=== PATIENT | male | born 1945 | race Caucasian/White ===

== ENCOUNTER → 2018-11-02 | Outpatient (CLI) | payer MEDICARE ==
[~2018-11-02] MED LIST: ASPI81CH PO; ATOR10; ATOR40TA PO; BRIM.15SO BOTHEYES; CHERRY EXTRACT; CHERRY FRUIT EXTRACT PO; CIPR500 PO; ENOX40I SC; FISH1000; FISH1000 PO; GREEN TEA; GREEN TEA EXTR250 MG PO; IBUP400 PO; LISI5; MOVE FREE ULTR1 EAC1 PO; MULT50L; MULVITMIND PO; OMEGA 3 PO; OXYACE5T PO; OXYACE7.5T PO; PROBIOTIC1 EAC1 PO; Pataday2.5 ML; RANI150; RANI150 PO; RXOXYACE PO; Ranitidine HCl300 MG PO; TIMO.5OPG BOTHEYES; TIMO.5OPSO LEFTEYE; TRIM250 PO; Tylenol325 MG PO; VITAMIN B6 PO
== END | disposition home or self-care (01) ==
LOC: LAB SHORT 14:00 → PLD 14:00
DX: D22.5 Melanocytic nevi of trunk (principal)
CPT/HCPCS: 88305

== ENCOUNTER 2019-01-08 08:41 | Emergency (ER) | payer MEDICARE ==
[~2019-01-08] VITALS: Ht 170.2 cm; Wt 79.4 kg
[2019-01-08] MEDS ORDERED: Combigan Eye Dro5 ML OP (08:49)
[2019-01-08] MEDS ORDERED: TIZANIDINE HCL2 MG PO (08:50)
[2019-01-08 09:32] LABS: BASOPHILS ABSOLUTE AUTO 0.04 K/mm3 (0.00-0.23); BASOPHILS PERCENT AUTO 1 % (0-2); EOSINOPHILS ABSOLUTE AUTO 0.09 K/mm3 (0.00-0.68); EOSINOPHILS PERCENT AUTO 2 % (0-6); Hematocrit 39.6 % (37.0-53.0); Hemoglobin 13.3 g/dL (13.5-17.5); IMMATURE GRAN ABSOLUTE AUTO 0.02 K/mm3 (0.00-0.10); IMMATURE GRAN PERCENT AUTO 0 % (0-1); LYMPHOCYTES ABSOLUTE AUTO 1.07 K/mm3 (0.84-5.20); LYMPHOCYTES PERCENT AUTO 23 % (21-46); MONOCYTES ABSOLUTE AUTO 0.76 K/mm3 (0.16-1.47); MONOCYTES PERCENT AUTO 17 % (4-13); Mean Corpuscular HGB 30.4 pg (26.0-34.0); Mean Corpuscular HGB Conc 33.6 g/dL (31.5-36.5); Mean Corpuscular Volume 90 fL (80-100); Mean Platelet Volume 10.5 fL (9.1-12.4); NEUTROPHILS ABSOLUTE AUTO 2.61 K/mm3 (1.96-9.15); NEUTROPHILS PERCENT AUTO 57 % (41-73); Platelet Count 148 K/mm3 (150-400); RDW Coefficient Variation 12.7 % (11.7-14.2); RDW Standard Deviation 41.9 fL (35.1-46.3); Red Blood Cell Count 4.38 M/mm3 (4.30-5.90); White Blood Cell Count 4.59 K/mm3 (4.00-11.30)
[2019-01-08 09:41] LABS: Alanine Aminotransfer (ALT/SGP 30 U/L (12-78); Albumin, Blood 3.2 g/dL (3.4-5.0); Alk Phos 126 U/L (50-136); Anion Gap 6 mmol/L (6-16); Aspartate Aminotrans (AST/SGOT 23 U/L (12-37); Bilirubin, Total 0.5 mg/dL (0.1-1.0); Blood Urea Nitrogen 23 mg/dL (8-24); Bun/Creatinine Ratio 38.3 (12.0-20.0); CO2, Blood 26 mmol/L (21-32); Calcium, Blood 8.7 mg/dL (8.5-10.1); Chloride, Blood 112 mmol/L (98-108); Globulin, Blood 3.1 g/dL (2.2-4.0); Glomerular Filtration Rate >60 (60-); Glucose, Blood 139 mg/dL (70-99); Sodium, Blood 144 mmol/L (136-145); Total Protein, Blood 6.3 g/dL (6.4-8.2)
[2019-01-08] MEDS ORDERED: Motion Sickness25 M1 PO (11:16)
== END 2019-01-08 11:31 | disposition home or self-care (01) ==
LOC: ER 08:41
PROVIDERS: Emergency Medicine
DX: R42 Dizziness and giddiness (principal); E78.00 Pure hypercholesterolemia, unspecified; K21.9 Gastro-esophageal reflux disease without esophagitis; Z79.82 Long term (current) use of aspirin; Z79.899 Other long term (current) drug therapy
CPT/HCPCS: 80053; 84484; 85025; 93005; 93010; 96360; 99284-25; J7030

== ENCOUNTER 2019-02-26 08:35 | Emergency (ER) | payer MEDICARE ==
[~2019-02-26] VITALS: Ht 170.2 cm; Wt 79.8 kg
[~2019-02-26 08:35] MED LIST changes: +Combigan Eye Dro5 ML OP; +Motion Sickness25 M1 PO; +TIZANIDINE HCL2 MG PO
== END 2019-02-26 10:46 | disposition home or self-care (01) ==
LOC: ER 08:35
DX: S29.011A Strain of muscle and tendon of front wall of thorax, initial encounter (principal); Z88.8 Allergy status to other drugs, medicaments and biological substances; Z79.899 Other long term (current) drug therapy; X58.XXXA Exposure to other specified factors, initial encounter
CPT/HCPCS: 71046; 99283-25

== ENCOUNTER 2019-03-28 16:49 | Emergency (ER) | payer MEDICARE ==
[~2019-03-28] VITALS: Ht 170.2 cm; Wt 79.4 kg
[2019-03-28 17:40] LABS: BASOPHILS ABSOLUTE AUTO 0.05 K/mm3 (0.00-0.23); BASOPHILS PERCENT AUTO 1 % (0-2); EOSINOPHILS ABSOLUTE AUTO 0.12 K/mm3 (0.00-0.68); EOSINOPHILS PERCENT AUTO 2 % (0-6); Hematocrit 41.4 % (37.0-53.0); Hemoglobin 14.6 g/dL (13.5-17.5); IMMATURE GRAN ABSOLUTE AUTO 0.02 K/mm3 (0.00-0.10); IMMATURE GRAN PERCENT AUTO 0 % (0-1); LYMPHOCYTES ABSOLUTE AUTO 2.03 K/mm3 (0.84-5.20); LYMPHOCYTES PERCENT AUTO 29 % (21-46); MONOCYTES ABSOLUTE AUTO 1.16 K/mm3 (0.16-1.47); MONOCYTES PERCENT AUTO 16 % (4-13); Mean Corpuscular HGB 30.7 pg (26.0-34.0); Mean Corpuscular HGB Conc 35.3 g/dL (31.5-36.5); Mean Corpuscular Volume 87 fL (80-100); Mean Platelet Volume 11.3 fL (9.1-12.4); NEUTROPHILS ABSOLUTE AUTO 3.68 K/mm3 (1.96-9.15); NEUTROPHILS PERCENT AUTO 52 % (41-73); Platelet Count 204 K/mm3 (150-400); RDW Coefficient Variation 12.5 % (11.7-14.2); RDW Standard Deviation 40.1 fL (35.1-46.3); Red Blood Cell Count 4.76 M/mm3 (4.30-5.90); White Blood Cell Count 7.06 K/mm3 (4.00-11.30)
[2019-03-28 17:50] LABS: Alanine Aminotransfer (ALT/SGP 30 U/L (12-78); Albumin, Blood 3.5 g/dL (3.4-5.0); Alk Phos 205 U/L (50-136); Anion Gap 9 mmol/L (6-16); Aspartate Aminotrans (AST/SGOT 30 U/L (12-37); Bilirubin, Total 0.5 mg/dL (0.1-1.0); Blood Urea Nitrogen 22 mg/dL (8-24); Bun/Creatinine Ratio 29.9 (12.0-20.0); CO2, Blood 24 mmol/L (21-32); Calcium, Blood 9.2 mg/dL (8.5-10.1); Chloride, Blood 106 mmol/L (98-108); Creatinine, Blood 0.74 mg/dL (0.60-1.20); Globulin, Blood 3.5 g/dL (2.2-4.0); Glomerular Filtration Rate >60 (60-); Glucose, Blood 129 mg/dL (70-99); Potassium, Blood 3.7 mmol/L (3.5-5.5); Sodium, Blood 139 mmol/L (136-145)
[2019-03-28 18:28] LABS: Source, Urine Voided
[2019-03-28 18:36] LABS: Bilirubin, Urine Neg (Neg); Blood, Urine 1+ (Neg); Glucose Qualitative, Urine Neg (Neg); Ketones, Urine 2+ (Neg); Leukocyte Esterase, Urine Neg (Neg); Nitrite, Urine Neg (Neg); Protein, Urine Neg (Neg); Specific Gravity, Urine 1.015 (1.003-1.022); Urobilinogen, Urine NORM (Normal); pH, Urine 6.5 (5.0-8.0)
[2019-03-28 18:51] LABS: Appearance, Urine Clear (Clear); Color, Urine Yellow (P-Yellow)
[2019-03-28 18:53] LABS: Amorphous Light (0-Heavy); Bacteria Few /hpf; Red Blood Cells, Urine 0-2 /hpf (0-2); Squamous Epithelial Cells Not Seen /hpf (Few); White Blood Cells, Urine 0-2 /hpf (0-5)
[2019-03-28] MEDS ORDERED: Percocet 7.5-31 EACH PO (19:34)
== END 2019-03-28 19:50 | disposition home or self-care (01) ==
LOC: ER 16:49
PROVIDERS: Emergency Medicine
DX: R10.11 Right upper quadrant pain (principal); J90 Pleural effusion, not elsewhere classified; Z88.8 Allergy status to other drugs, medicaments and biological substances; Z79.899 Other long term (current) drug therapy; Z79.82 Long term (current) use of aspirin; Z85.118 Personal history of other malignant neoplasm of bronchus and lung
CPT/HCPCS: 71046; 76705; 80053; 81001; 83690; 85025; 93005; 93010; 99285-25

== ENCOUNTER 2019-04-05 14:34 | Emergency (ER) | payer MEDICARE ==
[~2019-04-05] VITALS: Ht 165.1 cm; Wt 78.0 kg
[~2019-04-05 14:34] MED LIST changes: +Percocet 7.5-31 EACH PO
[2019-04-05 15:20] LABS: BASOPHILS ABSOLUTE AUTO 0.05 K/mm3 (0.00-0.23); BASOPHILS PERCENT AUTO 1 % (0-2); EOSINOPHILS ABSOLUTE AUTO 0.11 K/mm3 (0.00-0.68); EOSINOPHILS PERCENT AUTO 2 % (0-6); Hematocrit 41.3 % (37.0-53.0); IMMATURE GRAN ABSOLUTE AUTO 0.02 K/mm3 (0.00-0.10); IMMATURE GRAN PERCENT AUTO 0 % (0-1); LYMPHOCYTES ABSOLUTE AUTO 1.13 K/mm3 (0.84-5.20); LYMPHOCYTES PERCENT AUTO 23 % (21-46); MONOCYTES ABSOLUTE AUTO 0.86 K/mm3 (0.16-1.47); MONOCYTES PERCENT AUTO 17 % (4-13); Mean Corpuscular HGB Conc 33.9 g/dL (31.5-36.5); Mean Corpuscular Volume 89 fL (80-100); NEUTROPHILS ABSOLUTE AUTO 2.84 K/mm3 (1.96-9.15); NEUTROPHILS PERCENT AUTO 57 % (41-73); Platelet Count 206 K/mm3 (150-400); RDW Coefficient Variation 12.6 % (11.7-14.2); RDW Standard Deviation 41.2 fL (35.1-46.3); Red Blood Cell Count 4.66 M/mm3 (4.30-5.90); White Blood Cell Count 5.01 K/mm3 (4.00-11.30)
[2019-04-05 15:31] LABS: Alanine Aminotransfer (ALT/SGP 30 U/L (12-78); Albumin, Blood 3.2 g/dL (3.4-5.0); Albumin/Globulin Ratio 0.9 (0.8-1.8); Alk Phos 206 U/L (50-136); Anion Gap 7 mmol/L (6-16); Aspartate Aminotrans (AST/SGOT 29 U/L (12-37); Bilirubin, Total 0.5 mg/dL (0.1-1.0); Blood Urea Nitrogen 17 mg/dL (8-24); Bun/Creatinine Ratio 30.2 (12.0-20.0); CO2, Blood 27 mmol/L (21-32); Calcium, Blood 8.7 mg/dL (8.5-10.1); Chloride, Blood 109 mmol/L (98-108); Creatinine, Blood 0.56 mg/dL (0.60-1.20); Globulin, Blood 3.6 g/dL (2.2-4.0); Glomerular Filtration Rate >60 (60-); Glucose, Blood 115 mg/dL (70-99); Sodium, Blood 143 mmol/L (136-145); Total Protein, Blood 6.8 g/dL (6.4-8.2)
[2019-04-05] MEDS ORDERED: Percocet 5-3251 EACH PO (17:11)
[2019-04-06] MEDS ORDERED: Zofran8 MG PO (16:38)
[2019-04-06] MEDS ORDERED: Percocet 5-3251 EACH PO (16:38)
== END 2019-04-05 17:20 | disposition home or self-care (01) ==
LOC: ER 14:34
PROVIDERS: Emergency Medicine
DX: R10.11 Right upper quadrant pain (principal); Z87.891 Personal history of nicotine dependence; Z85.118 Personal history of other malignant neoplasm of bronchus and lung; Z88.8 Allergy status to other drugs, medicaments and biological substances; Z79.899 Other long term (current) drug therapy; Z79.891 Long term (current) use of opiate analgesic; Z79.82 Long term (current) use of aspirin
CPT/HCPCS: 80053; 83690; 85025; 93005; 93010; 99284-25

== ENCOUNTER 2019-04-06 11:39 | Emergency (ER) | payer MEDICARE ==
[~2019-04-06] VITALS: Ht 165.1 cm; Wt 78.0 kg
[~2019-04-06 11:39] MED LIST changes: +Percocet 5-3251 EACH PO
[2019-04-06] MEDS ORDERED: Zofran8 MG PO (16:38)
[2019-04-06] MEDS ORDERED: Percocet 5-3251 EACH PO (16:38)
== END 2019-04-06 16:49 | disposition home or self-care (01) ==
LOC: ER 11:39
DX: G89.3 Neoplasm related pain (acute) (chronic) (principal); R10.9 Unspecified abdominal pain; C76.2 Malignant neoplasm of abdomen; C41.9 Malignant neoplasm of bone and articular cartilage, unspecified; Z88.8 Allergy status to other drugs, medicaments and biological substances; Z79.899 Other long term (current) drug therapy; Z79.82 Long term (current) use of aspirin; Z87.891 Personal history of nicotine dependence
CPT/HCPCS: 99284

== ENCOUNTER 2019-04-10 22:56 | Emergency (ER) | payer MEDICARE ==
[~2019-04-10] VITALS: Ht 170.2 cm; Wt 77.1 kg
[~2019-04-10 22:56] MED LIST changes: +Zofran8 MG PO
== END 2019-04-11 00:37 | disposition home or self-care (01) ==
LOC: ER 22:56
DX: C80.0 Disseminated malignant neoplasm, unspecified (principal); Z87.891 Personal history of nicotine dependence; Z88.8 Allergy status to other drugs, medicaments and biological substances; Z79.899 Other long term (current) drug therapy; Z79.82 Long term (current) use of aspirin; Z79.891 Long term (current) use of opiate analgesic
CPT/HCPCS: 96360; 99284-25; J7030

== ENCOUNTER 2019-04-11 14:20 | Day surgery (SDC) | payer MEDICARE ==
[2019-04-14] MEDS ORDERED: Roxicodone5 MG PO (22:41)
[2019-04-14] MEDS ORDERED: Miralax17 GM PO (22:42)
== END 2019-05-09 23:00 | disposition home or self-care (01) ==
LOC: CT 14:20
DX: C41.4 Malignant neoplasm of pelvic bones, sacrum and coccyx (principal)
CPT/HCPCS: 20225; 77012; 88305; 88341; 88342

== ENCOUNTER 2019-04-14 22:08 | Emergency (ER) | payer MEDICARE ==
[~2019-04-14] VITALS: Ht 165.1 cm; Wt 78.0 kg
[2019-04-14] MEDS ORDERED: Roxicodone5 MG PO (22:41)
[2019-04-14] MEDS ORDERED: Miralax17 GM PO (22:42)
== END 2019-04-14 23:48 | disposition home or self-care (01) ==
LOC: ER 22:08
DX: C76.2 Malignant neoplasm of abdomen (principal); C78.00 Secondary malignant neoplasm of unspecified lung; C79.51 Secondary malignant neoplasm of bone
CPT/HCPCS: 96374; 99284-25; A9270; J1170; J2270

== ENCOUNTER → 2019-11-28 | Outpatient (CLI) | payer MEDICARE ==
[~2019-11-28] MED LIST changes: +Miralax17 GM PO; +Roxicodone5 MG PO
== END | disposition home or self-care (01) ==
LOC: LAB SHORT 13:25 → PLD 13:25
DX: D22.61 Melanocytic nevi of right upper limb, including shoulder (principal); D22.5 Melanocytic nevi of trunk
CPT/HCPCS: 88305

== ENCOUNTER → 2020-05-29 | Outpatient (CLI) | payer MEDICARE | LOC: LAB SHORT 12:28 → PLD 12:28 | DX: L57.0 Actinic keratosis (principal) | CPT/HCPCS: 88305 ==

== ENCOUNTER 2020-09-28 01:53 | Day surgery (SDC) | payer MEDICARE ==
[~2020-09-28 01:53] MED LIST changes: -Combigan Eye Dro5 ML OP
[2020-09-28] MEDS ORDERED: XYZAL5 MG PO (10:12)
[2020-09-28] MEDS ORDERED: MOVE FREE (10:13)
[2021-02-01] MEDS ORDERED: COMBIGAN 0.2%-0.5 ML (21:38)
[2021-02-13] MEDS ORDERED: COMBIGAN 0.2%-0.5 ML (13:02)
== END 2020-09-28 10:17 | disposition home or self-care (01) ==
LOC: ATC 01:53
DX: E27.40 Unspecified adrenocortical insufficiency (principal); C34.12 Malignant neoplasm of upper lobe, left bronchus or lung; C79.51 Secondary malignant neoplasm of bone; G44.40 Drug-induced headache, not elsewhere classified, not intractable; R10.9 Unspecified abdominal pain; T50.995A Adverse effect of other drugs, medicaments and biological substances, initial encounter; I10 Essential (primary) hypertension; E11.9 Type 2 diabetes mellitus without complications; E78.5 Hyperlipidemia, unspecified; E66.9 Obesity, unspecified; G30.9 Alzheimer's disease, unspecified; D69.6 Thrombocytopenia, unspecified; K21.9 Gastro-esophageal reflux disease without esophagitis; F41.8 Other specified anxiety disorders; Z87.891 Personal history of nicotine dependence; Z96.652 Presence of left artificial knee joint; Z68.27 Body mass index [BMI] 27.0-27.9, adult
CPT/HCPCS: 36415; 80400; 82533; 96372; J0834

== ENCOUNTER 2020-10-30 01:49 | Observation (INO) | payer MEDICARE ==
[~2020-10-30] VITALS: Ht 170.2 cm; Wt 79.0 kg
[~2020-10-30 01:49] MED LIST changes: +MOVE FREE; +XYZAL5 MG PO
[2020-10-30 02:13] LABS: BASOPHILS ABSOLUTE AUTO 0.04 K/mm3 (0.00-0.23); BASOPHILS PERCENT AUTO 1 % (0-2); EOSINOPHILS ABSOLUTE AUTO 0.13 K/mm3 (0.00-0.68); EOSINOPHILS PERCENT AUTO 3 % (0-6); Hematocrit 39.1 % (37.0-53.0); Hemoglobin 13.4 g/dL (13.5-17.5); IMMATURE GRAN ABSOLUTE AUTO 0.03 K/mm3 (0.00-0.10); IMMATURE GRAN PERCENT AUTO 1 % (0-1); LYMPHOCYTES ABSOLUTE AUTO 0.72 K/mm3 (0.84-5.20); LYMPHOCYTES PERCENT AUTO 15 % (21-46); MONOCYTES ABSOLUTE AUTO 0.94 K/mm3 (0.16-1.47); MONOCYTES PERCENT AUTO 19 % (4-13); Mean Corpuscular HGB 30.6 pg (26.0-34.0); Mean Corpuscular HGB Conc 34.3 g/dL (31.5-36.5); Mean Corpuscular Volume 89 fL (80-100); Mean Platelet Volume 10.3 fL (9.1-12.4); NEUTROPHILS ABSOLUTE AUTO 3.11 K/mm3 (1.96-9.15); NEUTROPHILS PERCENT AUTO 63 % (41-73); Platelet Count 130 K/mm3 (150-400); RDW Coefficient Variation 12.7 % (11.7-14.2); RDW Standard Deviation 42.2 fL (35.1-46.3); Red Blood Cell Count 4.38 M/mm3 (4.30-5.90); White Blood Cell Count 4.97 K/mm3 (4.00-11.30)
[2020-10-30 02:29] LABS: Alanine Aminotransfer (ALT/SGP 43 U/L (12-78); Albumin, Blood 3.3 g/dL (3.4-5.0); Albumin/Globulin Ratio 0.9 (0.8-1.8); Alk Phos 116 U/L (50-136); Anion Gap 6 mmol/L (6-16); Aspartate Aminotrans (AST/SGOT 38 U/L (12-37); Bilirubin, Total 0.4 mg/dL (0.1-1.0); Blood Urea Nitrogen 13 mg/dL (8-24); Bun/Creatinine Ratio 21.8 (12.0-20.0); CO2, Blood 30 mmol/L (21-32); Calcium, Blood 9.2 mg/dL (8.5-10.1); Chloride, Blood 99 mmol/L (98-108); Globulin, Blood 3.5 g/dL (2.2-4.0); Glomerular Filtration Rate >60 (60-); Glucose, Blood 102 mg/dL (70-99); Sodium, Blood 135 mmol/L (136-145); Total Protein, Blood 6.8 g/dL (6.4-8.2)
--- NOTE | 2020-10-30 06:44 | NUR ---
ARRIVED TO ICU 03/END OF SHIFT SUMMARY PT ARRIVED TO ICU 3 AT 0305 ON ED BED. PT IS ALERT/ORIENTED AND ABLE TO MAKE HIS NEEDS KNOWN, PT IS SLOW TO RESPOND DUE TO HAVING TO TAKE SEVERAL BREATHS WHILE SPEAKING. SPO2 >95% ON 2L. AFIBRILE. VSS. ABDOMEN IS VERY EXTENDED AND HARD, OCCATIONAL SHARP PAIN IN ABD NOTED BY PT THAT GOES AWAY. DR PIERCE IN TO ASSESS PT, NEW ORDERS PROVIDED INCLUDING PARACENTESIS FOR TODAY. SEE ADMISSION ASSESSMENT FOR FULL ASSESSMENT. WILL REPORT TO AM RN WHEN AVAILABLE.
--- NOTE | 2020-10-30 07:41 | NUR ---
ASSUMED CARE: PT RESTING QUIETLY IN BED, 2L IN PLACE VIA NC FOR COMFORT. NSR ON TELE. NO ACUTE NEEDS OR CONCERNS AT THIS TIME.
--- NOTE | 2020-10-30 11:10 | NUR ---
CALL TO PT'S TO GIVE UPDATE ON STATUS. DR ACEVES AWARE THAT CT CALLED AND STATED THAT THERE WAS NOT ENOUGH FLUID FOR PARACENTESIS. ABD XRAY BEING PERFORMED AT THIS TIME
--- NOTE | 2020-10-30 11:29 | NUR ---
PT BACK IN ROOM FROM IMAGING AT THIS TIME
--- NOTE | 2020-10-30 15:24 | NUR ---
[facility] Care Initial vist after referral received from our Thoracic Medicine Physician, who had visited pt earlier in the day. Pt has a hx of Metastatic Lung CA, dx approx 1.5 years ago per . Pt sees oncologist, Dr Connelly and currently has been on Immunotherapy. Pt was admitted with ascites and marie pleural eff, dyspnea. He had a CT of abdomen last week showing the fluid and per , Dr hoped to get cytology testing of fluid from CT guided paracentisis. That was not possible per radiology. Dr Caballero has ordered an x-ray per /pt. Pt/ would like Dr Connelly to see pt and provide input on tx and testing. Pt/ want to know if he should be on his immunotherapy during this stay. I passed all of those requests/quesitons on to Nilda [facility] health care marketing manager to also pass on to Dr Caballero. requests visit or call from Dr Caballero if she is available this afternoon. That was passed on to Nilda and RN had called and left a message with Dr Caballero also. My visit today was the first with Lucio and rapport building at this time. He had already confirmed with admitting Dr that he desires FULL CODE status at this time. Pt/ seeking cont tx of his metastatic cancer for prolonging life and are aware that the current tx is not curative. Pt is currently experiencing Nausea/vomiting but mild to moderate discomfort primarily due to tightness of abd with ascites. I requested provider consult from [facility] for Dr Connelly per pt request. Pt coached on reporting unrelieved Nausea or pain with current medications. He has not felt uncomfortable enough to want any pain medications per pt and he is aware they make his nausea worse. Pt taking in small amounts of cl liq. Pt was fatiguing towards the end of my visit so I left and also went home to allow pt to rest. Planned with both of them to follow up on s/s and assisting with coordinating care tomorrow. Pt asked if he would be here "awhile" and I referred him to his Drs but told him I did not believe he would be discharged today due to ongoing n/v.
--- NOTE | 2020-10-30 15:32 | NUR ---
ADMIT:10/30/20 DISCHARGE: DX: SOB, Ascites, Lung CA CC: kwilcox CHANDLER CALL: RESIDENCE: Home CAREGIVER: Maggie Be, Spouse / Partner, DX: Anemia, HTN, GERD, Lung CA, DM- type 2 DME: none CCM: none HOME HEALTH: None SUMMARY: Admit: 10/30/20 10/30/20- received call from Gloria with Palliative care. She has met with the who is in the hospital visiting the pt. has several requests; 1) would like to meet with the [facility] doctor. 2) CT was done last week and the intent was for get some fluid to look at, there was not enough fluid to do this. 3) would like to have Dr. Connelly here in the hospital. They report that they have already contacted his office and he knows pt is in the hospital. 4) is wondering if pt should be on immune therapy medication and if he is she can bring it from home. Contacted Dr. Caballero, she acknowledged the above requests of the and she would be back to the hospital in a little bit. -karen
--- NOTE | 2020-10-30 18:43 | NUR ---
Spiritual care note; April told me about his cancer niño. He states his treatments have been successful at holding his cancer at bay. He also states the cancer has spread to his bones and brain, however. He appears quite frail and admits he is worried. April has kathia in his oncologist and is hoping for many more years with his . She is the love of his life, and tells me "I am not ready to leave her." He responded well to theraputic listening and prayer. I will remain available.
--- NOTE | 2020-10-30 19:38 | NUR ---
SHIFT SUMMARY: PLAN FOR PT IS THORACENTESIS TOMORROW DUE TO PLEURAL EFFUSIONS. POSSIBLE DC TOMORROW AFTER THAT. PT MEDICATED X1 FOR NAUSEA AND X1 FOR HEART BURN. MEDICAL STATUS. NO FURTHER NEEDS OR CONCERNS AT THIS TIME. 2LNC FOR COMFORT
[2020-10-30 21:05] LABS: Influenza A, PCR NEGATIVE (NEGATIVE); Influenza B, PCR NEGATIVE (NEGATIVE); Resp Syncytial Virus, PCR NEGATIVE (NEGATIVE); SARS-Cov-2 (COVID-19) PCR, MMC NEGATIVE (NEGATIVE)
--- NOTE | 2020-10-30 22:04 | NUR ---
CARE ASSUMED 1900 Pt is medical floor status. Report recieved from MARITA Weeks. Pt is A/O X 4, slow to respond. Laying in bed watching TV. Pt complains of feeling SOB frequently, SPO2 > 90%, and on 3 L via NC. Pt states he came to hospital for feeling SOB, states SOB is not worse compared to before. Pt also complains of upper back pain and headache, treated per emar with good effect. NSR with occasional PVC's. Pts tele discontinued per orders. BP stable. Earlier in shift recieved a call from lab for COVID swab not recieved. Swab completed and results are neg. Pt tolerated swab well.
--- NOTE | 2020-10-31 00:38 | NUR ---
UPDATE Pt states having abd pain while laying on right side. RLS with good effect, decreased pain. VSS. On 3 L via NC, SPO2 > 90%. Denies SOB at this time. Call light within reach.
--- NOTE | 2020-10-31 01:46 | NUR ---
INCREASED PAIN AND ACID REFLUX Pt states having back pain and headache (6/10), treated per emar. pt also states having acid reflux, treated per emar.
[2020-10-31 04:48] LABS: BASOPHILS ABSOLUTE AUTO 0.04 K/mm3 (0.00-0.23); BASOPHILS PERCENT AUTO 1 % (0-2); EOSINOPHILS ABSOLUTE AUTO 0.07 K/mm3 (0.00-0.68); EOSINOPHILS PERCENT AUTO 1 % (0-6); Hematocrit 37.6 % (37.0-53.0); Hemoglobin 12.8 g/dL (13.5-17.5); IMMATURE GRAN ABSOLUTE AUTO 0.01 K/mm3 (0.00-0.10); IMMATURE GRAN PERCENT AUTO 0 % (0-1); LYMPHOCYTES ABSOLUTE AUTO 0.62 K/mm3 (0.84-5.20); LYMPHOCYTES PERCENT AUTO 8 % (21-46); MONOCYTES ABSOLUTE AUTO 1.03 K/mm3 (0.16-1.47); MONOCYTES PERCENT AUTO 13 % (4-13); Mean Corpuscular HGB 30.4 pg (26.0-34.0); Mean Corpuscular Volume 89 fL (80-100); NEUTROPHILS ABSOLUTE AUTO 5.92 K/mm3 (1.96-9.15); NEUTROPHILS PERCENT AUTO 77 % (41-73); Platelet Count 128 K/mm3 (150-400); RDW Coefficient Variation 12.7 % (11.7-14.2); RDW Standard Deviation 42.1 fL (35.1-46.3); Red Blood Cell Count 4.21 M/mm3 (4.30-5.90); White Blood Cell Count 7.69 K/mm3 (4.00-11.30)
[2020-10-31 05:07] LABS: Alanine Aminotransfer (ALT/SGP 37 U/L (12-78); Albumin, Blood 2.9 g/dL (3.4-5.0); Alk Phos 114 U/L (50-136); Anion Gap 6 mmol/L (6-16); Aspartate Aminotrans (AST/SGOT 35 U/L (12-37); Bilirubin, Total 0.8 mg/dL (0.1-1.0); Blood Urea Nitrogen 10 mg/dL (8-24); Bun/Creatinine Ratio 15.3 (12.0-20.0); CO2, Blood 28 mmol/L (21-32); Calcium, Blood 8.6 mg/dL (8.5-10.1); Chloride, Blood 101 mmol/L (98-108); Creatinine, Blood 0.66 mg/dL (0.60-1.20); Glomerular Filtration Rate >60 (60-); Glucose, Blood 107 mg/dL (70-99); Magnesium, Blood 2.2 mg/dL (1.6-2.4); Sodium, Blood 135 mmol/L (136-145); Total Protein, Blood 5.9 g/dL (6.4-8.2)
--- NOTE | 2020-10-31 05:40 | NUR ---
Shift Summary Remains on 3 L via NC, SPO2 > 90%. VSS. A/O x 4. Back pain and headache has decreased to 2/10. Pt has frequent leg cramps, leg massage appears to help relieve cramps. Pt states, "I get charley horse at home too." SCD's in place. No significant changes t/o shift. Will report to oncoming shift.
--- NOTE | 2020-10-31 09:19 | NUR ---
PT RESTING IN BED. TOLERATED A CLEAR LIQUID BREAKFAST. DENIES PAIN AT THE MOMENT. GETS SOB EASILY FROM FULL FEELING FROM FLUID ACCUMULATION. US TECH CALLED AND SAID PT WILL BE TAKEN FOR THORACENTESIS AT 1430. NO REQUESTS, USES CALL LIGHT APPROPRIATELY.
--- NOTE | 2020-10-31 15:00 | NUR ---
PT HAS BEEN A/O X4 ALL DAY. ONLY TOLERATING SM AMT OF CLEAR LIQUIDS DUE TO FEELING FULL. GOT UP TO RECLINER FOR ABOUT A HOUR BEFORE HE COULD NOT TOLERATE IT ANYMORE. 1 PERSON ASSIST BACK TO BED. USING URINAL. PT IS DOWN TO THORACENTESIS NOW. GAVE REPORT TO MEDICAL MARITA LUCERO WHO WILL ASSUME CARE OF PT.
--- NOTE | 2020-10-31 15:25 | NUR ---
10/31/20- CHART REVIEW PT DR. ACEVES, PT IS SCHEDULED FOR THORACENTESIS TODAY. IF PT IS DOING WELL, HE COULD BE D/C HOME TODAY. MET WITH PT, HE CONFIRMED THAT HE WILL HAVE PROCEDURE TODAY. HE STATES THAT HIS WILL COME GET HIM AND TAKE HIM HOME. HE DID ASK THAT I CONTACT AND HAVE HER PUT HIS WALKER IN THE GARAGE SO THAT HE CAN USE IT TO GET OUT OF THE CAR AND INTO THE HOME. PT STATES THAT HE DOES HAVE A WALKER IN THE CLOSET IN HIS HOME. -ERICH
[2020-10-31 15:33] LABS: Automated BF RBC Count 0.006 M/mm3 (0-0); Automated BF WBC Count 0.731 K/mm3 (0-999); Body Fluid WBC Count 731 /mm3 (0-999); RBC Count, Body Fluid 6000 /mm3 (0-0)
[2020-10-31 15:41] LABS: Albumin, Body Fluid 2.6 g/dL; Glucose, Body Fluid 141 mg/dL; Lactate Dehydrogenase, Body Fl 133 U/L; Protein, Body Fluid 3.9 g/dL
--- NOTE | 2020-10-31 16:00 | NUR ---
Pal Care visit to pt and just after transfer medical floor. Pt is feeling some relief of pressure and sob after thoracentisis this afternoon. Engaged pt and in Therapeutic conversation about what was important to them, hopes and advanced care planning. Pt is receptive to further discussion about prognosis and anaticipated outcomes with his providers, especially after current work up and testing results known. Pt stated if he was not anticipated to be better than he is right now he would not want CPR or intubation. He and his , with providers will cont to discuss that. Literature on Advanced care planning given and both were receptive to reading it. Pt is missing a beloved pet, Abbi the cat and being home with his of 52 years. Discussed immunotherapy medication that brought in for pt with RN who will take it to pharmacy to be labled for use while pt is here. Pt hopeful for d/c home tomorrow and further work up as an outpt. Pt and expressed appreciation of the conversation.
[2020-10-31 16:30] LABS: Appearance, Body Fluid Hazy (Clear); Color, Body Fluid Yellow (None-Yellow); Total Cell Count, Body Fluid 100
[2021-02-01] MEDS ORDERED: COMBIGAN 0.2%-0.5 ML (21:38)
[2021-02-13] MEDS ORDERED: COMBIGAN 0.2%-0.5 ML (13:02)
== END 2020-10-31 17:38 | disposition home or self-care (01) ==
LOC: ER 01:49 → ICUE 01:50 → ERHOLD 01:50 → ICUE 01:51 → ER 02:23 → ICUE 02:23 → ERHOLD 02:23 → ICUE 02:50 → ERHOLD 02:50 → UNDODEPER 03:53 → ICUE 19:17 → MEDS 10-31 16:15
PROVIDERS: Emergency Medicine; Internal Medicine; ADMIT Internal Medicine
DX: C34.90 Malignant neoplasm of unspecified part of unspecified bronchus or lung (principal); J91.0 Malignant pleural effusion; J96.01 Acute respiratory failure with hypoxia; C80.0 Disseminated malignant neoplasm, unspecified; R18.0 Malignant ascites; M19.90 Unspecified osteoarthritis, unspecified site; E11.9 Type 2 diabetes mellitus without complications; R10.13 Epigastric pain; R63.0 Anorexia; C79.51 Secondary malignant neoplasm of bone; Z87.442 Personal history of urinary calculi; Z88.8 Allergy status to other drugs, medicaments and biological substances; Z87.891 Personal history of nicotine dependence; Z20.822 Contact with and (suspected) exposure to COVID-19
CPT/HCPCS: 0241U; 32555; 36415; 71045; 74022; 76705; 80053; 82042; 82140; 82945; 83615; 83690; 83735; 84157; 85025; 87070; 87205; 88108; 88305; 89051; 99285; A9270; C9113; G0378; J2405; J3010; J7030

== ENCOUNTER 2020-11-09 13:21 | Day surgery (SDC) | payer MEDICARE ==
[2020-11-10] MEDS ORDERED: Pataday2.5 ML BOTHEYES (02:10)
[2020-11-10] MEDS ORDERED: ACET325 PO (02:39)
[2020-11-10] MEDS ORDERED: Percocet 5-3251 EACH PO (02:40)
[2020-11-10] MEDS ORDERED: Zithromax250 MG PO (05:15)
[2021-02-01] MEDS ORDERED: COMBIGAN 0.2%-0.5 ML (21:38)
[2021-02-13] MEDS ORDERED: COMBIGAN 0.2%-0.5 ML (13:02)
== END 2020-11-09 22:38 | disposition home or self-care (01) ==
LOC: US 13:21
DX: R18.8 Other ascites (principal); J90 Pleural effusion, not elsewhere classified
CPT/HCPCS: 32555; 71045; 76705

== ENCOUNTER 2020-11-10 01:18 | Emergency (ER) | payer MEDICARE ==
[~2020-11-10] VITALS: Ht 170.2 cm; Wt 75.3 kg
[2020-11-10 02:00] LABS: BASOPHILS ABSOLUTE AUTO 0.05 K/mm3 (0.00-0.23); BASOPHILS PERCENT AUTO 1 % (0-2); EOSINOPHILS ABSOLUTE AUTO 0.18 K/mm3 (0.00-0.68); EOSINOPHILS PERCENT AUTO 3 % (0-6); Hematocrit 33.4 % (37.0-53.0); Hemoglobin 11.4 g/dL (13.5-17.5); IMMATURE GRAN ABSOLUTE AUTO 0.05 K/mm3 (0.00-0.10); IMMATURE GRAN PERCENT AUTO 1 % (0-1); LYMPHOCYTES ABSOLUTE AUTO 0.63 K/mm3 (0.84-5.20); LYMPHOCYTES PERCENT AUTO 12 % (21-46); MONOCYTES PERCENT AUTO 15 % (4-13); Mean Corpuscular HGB 30.2 pg (26.0-34.0); Mean Corpuscular HGB Conc 34.1 g/dL (31.5-36.5); Mean Corpuscular Volume 88 fL (80-100); Mean Platelet Volume 10.1 fL (9.1-12.4); NEUTROPHILS ABSOLUTE AUTO 3.65 K/mm3 (1.96-9.15); NEUTROPHILS PERCENT AUTO 68 % (41-73); Platelet Count 149 K/mm3 (150-400); RDW Coefficient Variation 12.6 % (11.7-14.2); RDW Standard Deviation 40.9 fL (35.1-46.3); Red Blood Cell Count 3.78 M/mm3 (4.30-5.90); White Blood Cell Count 5.36 K/mm3 (4.00-11.30)
[2020-11-10] MEDS ORDERED: Pataday2.5 ML BOTHEYES (02:10)
[2020-11-10 02:23] LABS: Alanine Aminotransfer (ALT/SGP 40 U/L (12-78); Albumin, Blood 2.8 g/dL (3.4-5.0); Albumin/Globulin Ratio 0.9 (0.8-1.8); Alk Phos 121 U/L (50-136); Anion Gap 6 mmol/L (6-16); Aspartate Aminotrans (AST/SGOT 36 U/L (12-37); Bilirubin, Total 0.4 mg/dL (0.1-1.0); Blood Urea Nitrogen 14 mg/dL (8-24); Bun/Creatinine Ratio 21.6 (12.0-20.0); CO2, Blood 28 mmol/L (21-32); Calcium, Blood 8.6 mg/dL (8.5-10.1); Chloride, Blood 101 mmol/L (98-108); Creatinine, Blood 0.65 mg/dL (0.60-1.20); Globulin, Blood 3.2 g/dL (2.2-4.0); Glomerular Filtration Rate >60 (60-); Glucose, Blood 109 mg/dL (70-99); Potassium, Blood 3.9 mmol/L (3.5-5.5); Sodium, Blood 135 mmol/L (136-145); Troponin I <0.015 ng/mL (0.000-0.040)
[2020-11-10] MEDS ORDERED: ACET325 PO (02:39)
[2020-11-10] MEDS ORDERED: Percocet 5-3251 EACH PO (02:40)
[2020-11-10] MEDS ORDERED: Zithromax250 MG PO (05:15)
[2021-02-01] MEDS ORDERED: COMBIGAN 0.2%-0.5 ML (21:38)
[2021-02-13] MEDS ORDERED: COMBIGAN 0.2%-0.5 ML (13:02)
== END 2020-11-10 06:15 | disposition home or self-care (01) ==
LOC: ER 01:18
PROVIDERS: Emergency Medicine
DX: R05 Cough (principal); R06.02 Shortness of breath; Z88.8 Allergy status to other drugs, medicaments and biological substances; Z79.899 Other long term (current) drug therapy; Z87.891 Personal history of nicotine dependence
CPT/HCPCS: 36415; 71045; 71260; 80053; 83605; 83880; 84484; 85025; 93005; 93010; 99284-25; A9270; Q9967

== ENCOUNTER 2020-11-15 18:48 | Observation (INO) | payer MEDICARE ==
[~2020-11-15] VITALS: Ht 170.2 cm; Wt 77.1 kg
[~2020-11-15 18:48] MED LIST changes: +ACET325 PO; +Pataday2.5 ML BOTHEYES; +Zithromax250 MG PO
[2020-11-15 20:41] LABS: Alanine Aminotransfer (ALT/SGP 45 U/L (12-78); Albumin/Globulin Ratio 0.9 (0.8-1.8); Alk Phos 132 U/L (50-136); Anion Gap 6 mmol/L (6-16); Aspartate Aminotrans (AST/SGOT 47 U/L (12-37); Bilirubin, Total 0.3 mg/dL (0.1-1.0); Blood Urea Nitrogen 17 mg/dL (8-24); CO2, Blood 27 mmol/L (21-32); Calcium, Blood 9.1 mg/dL (8.5-10.1); Chloride, Blood 103 mmol/L (98-108); Creatinine, Blood 0.71 mg/dL (0.60-1.20); Globulin, Blood 3.4 g/dL (2.2-4.0); Glomerular Filtration Rate >60 (60-); Glucose, Blood 166 mg/dL (70-99); Potassium, Blood 3.9 mmol/L (3.5-5.5); Sodium, Blood 136 mmol/L (136-145); Total Protein, Blood 6.4 g/dL (6.4-8.2)
[2020-11-15 20:43] LABS: International Normalized Ratio 0.98; Prothrombin Time Results 10.5 Sec (9.7-11.5)
[2020-11-15 20:44] LABS: BASOPHILS ABSOLUTE AUTO 0.04 K/mm3 (0.00-0.23); BASOPHILS PERCENT AUTO 1 % (0-2); EOSINOPHILS PERCENT AUTO 4 % (0-6); Hematocrit 34.7 % (37.0-53.0); Hemoglobin 11.9 g/dL (13.5-17.5); IMMATURE GRAN ABSOLUTE AUTO 0.03 K/mm3 (0.00-0.10); IMMATURE GRAN PERCENT AUTO 1 % (0-1); LYMPHOCYTES ABSOLUTE AUTO 0.67 K/mm3 (0.84-5.20); LYMPHOCYTES PERCENT AUTO 13 % (21-46); MONOCYTES ABSOLUTE AUTO 0.73 K/mm3 (0.16-1.47); MONOCYTES PERCENT AUTO 14 % (4-13); Mean Corpuscular HGB 30.2 pg (26.0-34.0); Mean Corpuscular HGB Conc 34.3 g/dL (31.5-36.5); Mean Corpuscular Volume 88 fL (80-100); Mean Platelet Volume 10.8 fL (9.1-12.4); NEUTROPHILS PERCENT AUTO 68 % (41-73); Platelet Count 165 K/mm3 (150-400); RDW Standard Deviation 42.1 fL (35.1-46.3); Red Blood Cell Count 3.94 M/mm3 (4.30-5.90); White Blood Cell Count 5.27 K/mm3 (4.00-11.30)
[2020-11-15] MEDS ORDERED: FAMO40 PO (23:12)
[2020-11-15] MEDS ORDERED: MEMA10 PO (23:12)
[2020-11-15] MEDS ORDERED: ATOR40TA PO (23:12)
[2020-11-15] MEDS ORDERED: COMBIGAN 0.2%-0.5 ML BOTHEYES (23:13)
[2020-11-15] MEDS ORDERED: SERT25 PO (23:13)
[2020-11-15] MEDS ORDERED: TAGRISSO80 MG PO (23:25)
[2020-11-15] MEDS ORDERED: [UNRECOGNIZED DRUG - OTHER] BOTHEYES (23:26)
[2020-11-16 04:49] LABS: BASOPHILS ABSOLUTE AUTO 0.04 K/mm3 (0.00-0.23); BASOPHILS PERCENT AUTO 1 % (0-2); EOSINOPHILS ABSOLUTE AUTO 0.21 K/mm3 (0.00-0.68); EOSINOPHILS PERCENT AUTO 3 % (0-6); Hematocrit 34.7 % (37.0-53.0); Hemoglobin 11.9 g/dL (13.5-17.5); IMMATURE GRAN ABSOLUTE AUTO 0.04 K/mm3 (0.00-0.10); IMMATURE GRAN PERCENT AUTO 1 % (0-1); LYMPHOCYTES ABSOLUTE AUTO 0.67 K/mm3 (0.84-5.20); LYMPHOCYTES PERCENT AUTO 10 % (21-46); MONOCYTES ABSOLUTE AUTO 0.93 K/mm3 (0.16-1.47); MONOCYTES PERCENT AUTO 14 % (4-13); Mean Corpuscular HGB Conc 34.3 g/dL (31.5-36.5); Mean Corpuscular Volume 87 fL (80-100); Mean Platelet Volume 10.3 fL (9.1-12.4); NEUTROPHILS ABSOLUTE AUTO 4.57 K/mm3 (1.96-9.15); NEUTROPHILS PERCENT AUTO 71 % (41-73); Platelet Count 155 K/mm3 (150-400); RDW Standard Deviation 41.6 fL (35.1-46.3); Red Blood Cell Count 3.97 M/mm3 (4.30-5.90); White Blood Cell Count 6.46 K/mm3 (4.00-11.30)
[2020-11-16 05:19] LABS: Alanine Aminotransfer (ALT/SGP 46 U/L (12-78); Albumin, Blood 2.9 g/dL (3.4-5.0); Albumin/Globulin Ratio 0.9 (0.8-1.8); Alk Phos 126 U/L (50-136); Anion Gap 8 mmol/L (6-16); Aspartate Aminotrans (AST/SGOT 43 U/L (12-37); Bilirubin, Total 0.5 mg/dL (0.1-1.0); Blood Urea Nitrogen 14 mg/dL (8-24); Bun/Creatinine Ratio 21.3 (12.0-20.0); CO2, Blood 28 mmol/L (21-32); Calcium, Blood 8.7 mg/dL (8.5-10.1); Chloride, Blood 102 mmol/L (98-108); Creatinine, Blood 0.66 mg/dL (0.60-1.20); Globulin, Blood 3.4 g/dL (2.2-4.0); Glomerular Filtration Rate >60 (60-); Glucose, Blood 102 mg/dL (70-99); Potassium, Blood 3.4 mmol/L (3.5-5.5); Sodium, Blood 138 mmol/L (136-145); Total Protein, Blood 6.3 g/dL (6.4-8.2)
--- NOTE | 2020-11-16 05:59 | NUR ---
patient was exquisitely uncomfortable around the abdomen and mid back upon arrival on the floor. It was obvious he was having trouble concentrating on the admission hx questions with such pain. After administering half of the ordered dose of fentanyl, Lucio fell fast asleep until waking in AM with severe dyspepsia. Patient stated that last time he was here, GI coctail worked well for him. Order received and given. Breathing slightly less labored this morning. NPO except GI coctail since 2400
[2020-11-16 10:14] LABS: Influenza A, PCR NEGATIVE (NEGATIVE); Influenza B, PCR NEGATIVE (NEGATIVE); Resp Syncytial Virus, PCR NEGATIVE (NEGATIVE); SARS-Cov-2 (COVID-19) PCR, MMC NEGATIVE (NEGATIVE)
--- NOTE | 2020-11-16 12:55 | NUR ---
ADMIT: 11/15/20 DISCHARGE: DX: Pleural Effusion, Right CC: cpeabodyADMIT:10/30/20 DISCHARGE: 11/01/20TOC CALL: , KLAUDIA, [phone]- 1 week follow up with cristino RESIDENCE: HOMECAREGIVER: KLAUDIA ALBARADO, SPOUSE / PARTNER, TJ: HTN, GERD, malignant tumor of lung, DM-type 2, see listDME: noneCCM: noneHOME HEALTH: noneSUMMARY: Admit: Per filiberto Laird today, not sure that he will discharge today. He will round on him again in the afternoon.Patient sleeping upon entering the room, Updated white board with my name, Left cristino letter hanging from the board for possible discharge later in the day.. Specified 1 week follow up with cristino post discharge.1. The patient is a 75-year-old male, coming in with shortness of breath due to areaccumulation and increase of a right pleural effusion. Moderate to large in amount atthis time.
--- NOTE | 2020-11-16 15:44 | NUR ---
PT DISCHARGED AT APPROX 1540 VIA WHEELCHAIR BY WAREHOUSE LEAD. WAS AT BEDSIDE WHEN DISCHARGE INSTRUCTION WERE PROVIDED. PT AND HAD NO FURTHER QUESTIONS AT THIS TIME AND ALREADY HAD FOLLOW UP APPOINTMENTS SCHEDULED WITH PCP AND ONCOLOGIST. NO NEEDED RX TO BE FILLED THIS DISCHARGE. IV WAS REMOVED AND SITE APPEARED WNL. PT WAS ABLE TO COMPLETE ADL'S WITH MINIMAL ASSISTANCE AND TOLERATE A DIET PRIOR TO DISCHARGE. WE WAS ABLE TO GET HIMSELF DRESSED FOR THE MOST PART AND AMBULATE TO THE BATHROOM USING THE WALKER WHICH IS HIS BASELINE AT HOME.
--- NOTE | 2020-11-19 12:38 | NUR ---
ADMIT: 11/15/20 DISCHARGE: 11/16/20 DX: Pleural Effusion, Right CC: cpeabody ADMIT:10/30/20 DISCHARGE: 11/01/20 CHANDLER CALL: , KLAUDIA, [phone]- 1 week follow up with chandler dickinson RESIDENCE: HOME CAREGIVER: KLAUDIA ALBARADO, SPOUSE / PARTNER, DX: HTN, GERD, malignant tumor of lung, DM-type 2, see list DME: none CCM: none HOME HEALTH: none SUMMARY: Admit: 11/15/20 11/16/20 Discharge home today, Follow up with CHANDLER or DR Liang in 1 week. Follow up with oncology as previously scheduled. Did not meet with patient prior to discharge. cp 11/16/20 Per filiberto Laird today, not sure that he will discharge today. He will round on him again in the afternoon. Patient sleeping upon entering the room, Updated white board with my name, Left chandler letter hanging from the board for possible discharge later in the day.. Specified 1 week follow up with chandler post discharge.
--- NOTE | 2020-11-19 12:38 | NUR ---
ADMIT: 11/15/20 DISCHARGE: 11/16/20 DX: Pleural Effusion, Right CC: cpeabody ADMIT:10/30/20 DISCHARGE: 11/01/20 CHANDLER CALL: , KLAUDIA, [phone]- 1 week follow up with chandler dickinson RESIDENCE: HOME CAREGIVER: KLAUDIA ALBARADO, SPOUSE / PARTNER, DX: HTN, GERD, malignant tumor of lung, DM-type 2, see list DME: none CCM: none HOME HEALTH: none SUMMARY: Admit: 11/15/20 11/16/20 Discharge home today, Follow up with CHANDLER or DR Liang in 1 week. Follow up with oncology as previously scheduled. Did not meet with patient prior to discharge. cp 11/16/20 Per filiberto Laird today, not sure that he will discharge today. He will round on him again in the afternoon. Patient sleeping upon entering the room, Updated white board with my name, Left chandler letter hanging from the board for possible discharge later in the day.. Specified 1 week follow up with chandler post discharge.
[2021-02-01] MEDS ORDERED: COMBIGAN 0.2%-0.5 ML (21:38)
[2021-02-13] MEDS ORDERED: COMBIGAN 0.2%-0.5 ML (13:02)
== END 2020-11-16 15:38 | disposition home or self-care (01) ==
LOC: ER 18:48 → MEDS 18:49
PROVIDERS: Internal Medicine Gastroenterology; Physician Assistant; ADMIT Internal Medicine
DX: J90 Pleural effusion, not elsewhere classified (principal); C34.90 Malignant neoplasm of unspecified part of unspecified bronchus or lung; J18.1 Lobar pneumonia, unspecified organism; C78.6 Secondary malignant neoplasm of retroperitoneum and peritoneum; E11.36 Type 2 diabetes mellitus with diabetic cataract; M19.90 Unspecified osteoarthritis, unspecified site; H26.9 Unspecified cataract; Z20.822 Contact with and (suspected) exposure to COVID-19; H40.9 Unspecified glaucoma; Z87.891 Personal history of nicotine dependence; Z87.442 Personal history of urinary calculi
CPT/HCPCS: 0241U; 32555; 36415; 71045; 71046; 80053; 82947; 85025; 85610; 87070; 87205; 96374; 96375; 99285-25; A9270; G0378; J1940; J2405; J3010

== ENCOUNTER 2020-11-24 12:07 | Emergency (ER) | payer MEDICARE ==
[~2020-11-24] VITALS: Ht 170.2 cm; Wt 78.0 kg
[~2020-11-24 12:07] MED LIST changes: +COMBIGAN 0.2%-0.5 ML BOTHEYES; +FAMO40 PO; +MEMA10 PO; +SERT25 PO; +TAGRISSO80 MG PO; +[UNRECOGNIZED DRUG - OTHER] BOTHEYES
[2020-11-24 12:32] LABS: BASOPHILS ABSOLUTE AUTO 0.03 K/mm3 (0.00-0.23); BASOPHILS PERCENT AUTO 1 % (0-2); EOSINOPHILS ABSOLUTE AUTO 0.17 K/mm3 (0.00-0.68); EOSINOPHILS PERCENT AUTO 3 % (0-6); Hematocrit 35.7 % (37.0-53.0); Hemoglobin 11.9 g/dL (13.5-17.5); IMMATURE GRAN ABSOLUTE AUTO 0.02 K/mm3 (0.00-0.10); IMMATURE GRAN PERCENT AUTO 0 % (0-1); LYMPHOCYTES ABSOLUTE AUTO 0.63 K/mm3 (0.84-5.20); LYMPHOCYTES PERCENT AUTO 13 % (21-46); MONOCYTES ABSOLUTE AUTO 0.76 K/mm3 (0.16-1.47); MONOCYTES PERCENT AUTO 15 % (4-13); Mean Corpuscular HGB 30.1 pg (26.0-34.0); Mean Corpuscular HGB Conc 33.3 g/dL (31.5-36.5); Mean Corpuscular Volume 90 fL (80-100); Mean Platelet Volume 10.6 fL (9.1-12.4); NEUTROPHILS ABSOLUTE AUTO 3.32 K/mm3 (1.96-9.15); NEUTROPHILS PERCENT AUTO 67 % (41-73); Platelet Count 157 K/mm3 (150-400); RDW Standard Deviation 42.8 fL (35.1-46.3); Red Blood Cell Count 3.95 M/mm3 (4.30-5.90); White Blood Cell Count 4.93 K/mm3 (4.00-11.30)
[2020-11-24 12:46] LABS: Alanine Aminotransfer (ALT/SGP 58 U/L (12-78); Albumin, Blood 2.6 g/dL (3.4-5.0); Albumin/Globulin Ratio 0.8 (0.8-1.8); Alk Phos 193 U/L (50-136); Anion Gap 6 mmol/L (6-16); Aspartate Aminotrans (AST/SGOT 68 U/L (12-37); Bilirubin, Total 0.5 mg/dL (0.1-1.0); Blood Urea Nitrogen 17 mg/dL (8-24); Bun/Creatinine Ratio 23.8 (12.0-20.0); CO2, Blood 28 mmol/L (21-32); Calcium, Blood 8.6 mg/dL (8.5-10.1); Chloride, Blood 104 mmol/L (98-108); Creatinine, Blood 0.71 mg/dL (0.60-1.20); Globulin, Blood 3.4 g/dL (2.2-4.0); Glomerular Filtration Rate >60 (60-); Glucose, Blood 144 mg/dL (70-99); Potassium, Blood 4.5 mmol/L (3.5-5.5); Sodium, Blood 138 mmol/L (136-145); Troponin I <0.015 ng/mL (0.000-0.040)
== END 2020-11-24 15:11 | disposition home or self-care (01) ==
LOC: ER 12:07
PROVIDERS: Physician Assistant
DX: C34.90 Malignant neoplasm of unspecified part of unspecified bronchus or lung (principal); C79.51 Secondary malignant neoplasm of bone; R18.8 Other ascites; Z87.891 Personal history of nicotine dependence
CPT/HCPCS: 36415; 71045; 74176; 80053; 83880; 84484; 85025; 93005; 93010; 96374; 96375; 99284-25; J2405; J3010; J7030

== ENCOUNTER 2020-11-28 01:00 | Observation (INO) | payer MEDICARE ==
[~2020-11-28] VITALS: Ht 170.2 cm; Wt 81.5 kg
[2020-11-28 01:23] LABS: BASOPHILS PERCENT AUTO 0 % (0-2); EOSINOPHILS PERCENT AUTO 0 % (0-6); Hematocrit 32.2 % (37.0-53.0); Hemoglobin 10.9 g/dL (13.5-17.5); IMMATURE GRAN ABSOLUTE AUTO 0.05 K/mm3 (0.00-0.10); IMMATURE GRAN PERCENT AUTO 1 % (0-1); LYMPHOCYTES PERCENT AUTO 4 % (21-46); MONOCYTES PERCENT AUTO 3 % (4-13); Mean Corpuscular HGB 29.9 pg (26.0-34.0); Mean Corpuscular HGB Conc 33.9 g/dL (31.5-36.5); Mean Corpuscular Volume 89 fL (80-100); Mean Platelet Volume 10.3 fL (9.1-12.4); NEUTROPHILS ABSOLUTE AUTO 9.79 K/mm3 (1.96-9.15); NEUTROPHILS PERCENT AUTO 93 % (41-73); Platelet Count 166 K/mm3 (150-400); RDW Standard Deviation 42.2 fL (35.1-46.3); Red Blood Cell Count 3.64 M/mm3 (4.30-5.90); White Blood Cell Count 10.54 K/mm3 (4.00-11.30)
[2020-11-28 01:41] LABS: Alanine Aminotransfer (ALT/SGP 48 U/L (12-78); Albumin, Blood 2.4 g/dL (3.4-5.0); Albumin/Globulin Ratio 0.7 (0.8-1.8); Alk Phos 151 U/L (50-136); Anion Gap 6 mmol/L (6-16); Aspartate Aminotrans (AST/SGOT 39 U/L (12-37); Bilirubin, Total 0.3 mg/dL (0.1-1.0); Blood Urea Nitrogen 17 mg/dL (8-24); Bun/Creatinine Ratio 27.1 (12.0-20.0); CO2, Blood 26 mmol/L (21-32); Calcium, Blood 8.3 mg/dL (8.5-10.1); Chloride, Blood 105 mmol/L (98-108); Creatinine, Blood 0.63 mg/dL (0.60-1.20); Globulin, Blood 3.3 g/dL (2.2-4.0); Glomerular Filtration Rate >60 (60-); Glucose, Blood 224 mg/dL (70-99); Potassium, Blood 4.1 mmol/L (3.5-5.5); Sodium, Blood 137 mmol/L (136-145); Total Protein, Blood 5.7 g/dL (6.4-8.2)
--- NOTE | 2020-11-28 05:17 | NUR ---
ADMIT PT ARRIVED TO 341 @5980, SBY TRANSFER FROM [facility] TO [facility]. ORIENTED TO & CALL LIGHT. WILL MONITOR.
--- NOTE | 2020-11-28 06:37 | NUR ---
SHIFT SUMMARY ADMITTED FOR R PLEURAL EFFUSION. AOX4. VSS. TELE SB @57. SLOW TO RESPOND TO QUESTIONS. FOLLOWS DIRECTIONS. REPORTS 4/10 TIGHT PAIN T/O ABD, DENIES THE NEED FOR PAIN MEDS. ABD FIRM, SEVERLY DISTENDED, HYPERACTIVE BT. REPORTS BM LAST NIGHT & TOLERATING PO INTAKE @HOME-NO EMESIS OR NAUSEA. SPO2 >90% ON 2L O2, DOESNT WEAR O2 @BASELINE. RLL CRACKLES. SOB c MINIMAL ACTIVITY. HAS BEEN NPO SINCE ARRIVAL TO FLOOR EXCEPT ICE FOR POSSIBLE PROCEDURE TODAY. CBG THIS AM @187, PROVIDED COVERAGE. CALL LIGHT IN REACH & PT ABLE TO MAKE NEEDS KNOWN.
[2020-11-28] MEDS ORDERED: FOLI1 PO (08:24)
[2020-11-28] MEDS ORDERED: ONDA4 PO (08:24)
[2020-11-28] MEDS ORDERED: DEXA4 PO (08:25)
--- NOTE | 2020-11-28 10:22 | NUR ---
Spoke with Dr Casiano prior to Pt visit and discussed case. Dr Casiano had discussion with Pt regarding code status. Pt's wishes are to be DNR. Pt and spouse would benefit from discussion regarding completing a POLST. Pt resting in bed upon arrival. Pt is A&O and reports 6/10 pain across his abdomen. Pt also reports mild dyspnea and C/O oxygen drying his nose and mouth. Engaged in therapeutic listening as Pt reports having a good experience with the hospital during his stays. Pt reports using a 1% cream to assist with pain management but does not know the name of the medication. Continued therapeutic listening. Pt reports plan for spouse to visit this afternoon and is agreeable to discuss completing a POLST when she is visiting. Pt expresses appreciation of visit and reports no other concerns at this time. Spoke with Bedside RN Jami, discussed case, and relayed Pt's pain. Discussed consideration for humidfied oxygen. Plan: F/U when spouse arrives to discuss completing POLST. Palliative Care will remain available.
[2020-11-28 13:30] LABS: Influenza A, PCR NEGATIVE (NEGATIVE); Influenza B, PCR NEGATIVE (NEGATIVE); Resp Syncytial Virus, PCR NEGATIVE (NEGATIVE); SARS-Cov-2 (COVID-19) PCR, MMC NEGATIVE (NEGATIVE)
--- NOTE | 2020-11-28 16:16 | NUR ---
F/U visit this afternoon. Arrived to room with Pt resting in bed and spouse Maggie at bedside. Educated on POLST per request from Pt and spouse. Educated on life sustaining measures including risk factors and implications of CPR. Answered questions and offered therapeutic listening. Spouse assists Pt with completing POLST. Pt's wishes on POLST is CPR and Full Treatment. Pt states he wants to live as long as possible. Pt appears to be confused on his decision and is unsure. He is requesting to speak with MD. Pt reports wanting his current code status to remain DNR until speaking with MD. Left new POLST at bedside in case Pt's wishes change. Called and spoke with Dr Casiano and relayed Pt's concerns and confusion. Spoke with Bedside RN Jami and discussed case. Palliative Care will F/U with Pt after Dr Casiano rounds in the AM.
--- NOTE | 2020-11-28 16:28 | NUR ---
PATIENT RETURNED FROM THORACENTESIS AT 1623 VIA HIS BED. ALERT, PLEASANT, BUT IS WONDERING WHY PARACENTESIS WAS NOT DONE ALSO. EDUCATED PT THAT NORMALLY BOTH PROCEDURES ARE NOT DONE ON THE SAME DAY D/T AMOUNT OF FLUID LOSS, TO WHICH HE VERBALIZED UNDERSTANDING. HE ASKED THAT I CALL DR. ANDRE SO HE COULD SPEAK TO HIM ABOUT THE PROCEDURE AND HIS CODE STATUS. SPOKE TO DR. ANDRE BY PHONE, HE STATED THAT WOULD BE UNABLE TO COME SPEAK TO PT AT THIS TIME HE WAS ADMITTING IN THE ED, WOULD SPEAK TO PT TOMORROW. RELAYED THIS INFORMATION TO PATIENT, HE VERBALIZED UNDERSTANDING. HE REQUESTED TO BE FULL CODE AGAIN, WHICH DR. ANDRE SAID WOULD BE OK. ORDER CHANGED IN COMPUTER.
--- NOTE | 2020-11-28 19:26 | NUR ---
SHIFT SUMMARY: NO ACUTE EVENTS. NO EVENTS ON TELEMETRY, SINUS IRIS 55-59 WITH PVC'S. S/P THORACENTESIS IN U/S TODAY, REMOVED 1.4 L PLEURAL FLUID, STATES HE IS BREATHING BETTER. C/O ABD DISCOMFORT WHEN TRYING TO SIT UP IN BED; FENTANYL GIVEN ONCE WITH RELIEF. PT WANTS A PARACENTESIS BEFORE HE IS DISCHARGED SO HE CAN BE COMFORTABLE. DISCUSSED HIS CODE STATUS SEVERAL TIMES TODAY, FINALLY CHANGED IT BACK TO FULL CODE PER HIS REQUEST. USES URINAL WITH ASSISTANCE, DID NOT GET OOB TODAY. APPETITE POOR, IS VERY PARTICULAR ABOUT HIS FOOD. VISITED FOR A FEW HOURS.
--- NOTE | 2020-11-28 19:40 | NUR ---
PT GAVE THIS STUDENT NURSE PERMISSION TO PROVIDE CARE N 11/28/20.
--- NOTE | 2020-11-28 19:49 | NUR ---
ADMIT: 11/28/20 DISCHARGE: DX: pleural eff CC: cp ADMIT: 11/15/20 DISCHARGE: 11/16/20 DX: Pleural Effusion, Right CC: cpeabody ADMIT:10/30/20 DISCHARGE: 11/01/20 CHANDLER CALL: , KLAUDIA, [phone]- 1 week follow up with chandler RESIDENCE: HOME CAREGIVER: KLAUDIA ALBARADO, SPOUSE / PARTNER, DX: HTN, GERD, malignant tumor of lung, DM-type 2, see list DME: none CCM: none HOME HEALTH: none SUMMARY: Admit 11/28/20 11/28/[address] Casiano, ETA discharge . Dr Connelly consult today, pateint does not want a pig tail, would like to continue palliative chemo, patient appears mild cognition impairment. IMPRESSION: 1. Shortness of breath in the setting of recurrent right-sided pleural effusion in the setting of metastatic lung cancer and abdominal distension secondary to peritoneal carcinomatosis and ascites. 2. For recurrent right pleural effusion, I put in a consult for surgery, Dr. Ferguson to see if patient would benefit from a PleurX catheter placement. Likely this will need to be discussed with patient's oncologist, Dr. Connelly regarding ultrasound-guided thoracocentesis versus PleurX catheter placement given prognosis. Dr. Joe Connelly from Oncology consulted. 3. Abdominal distension secondary to peritoneal carcinomatosis and moderate ascites. Plan as above. Ultrasound-guided paracentesis versus PleurX catheter placement based on recommendations of Dr. Joe Connelly from Oncology. 4. Metastatic lung cancer with ongoing chemotherapy
[2020-11-28] MEDS ORDERED: DICLOFENAC SOD100 GM TOP (19:53)
--- NOTE | 2020-11-29 05:30 | NUR ---
SHIFT SUMMARY PT EXERIENCED ACUTE R PAIN & NAUSEA; WITH DRY HEAVES. MEDICATED PER OCT BUT DID NOT RESOLVE PAIN OR NAUSEA. CALLED HOSPITALIST TO REQUEST ADDITIONAL ORDERS; INCREASED FREQUENCY/DOSE OF FENTANYL. GOT ORDER FOR REGLAN & TUMS. MEDICATION RESOLVED PT ISSUES OF NAUSEA, HICCUP, & PAIN. PT UNABLE TO SLEEP GOT ORDER FOR MELATONIN; DID NOT RESOLVE INSOMNIA. ABLE TO USE URINAL WITH ASSISTANCE, MAKE NEEDS KNOWN, AND USE CALL LIGHT. PT DISPLAYED EMOTIONAL LABILITY. BED IN LOWEST POSTION, CALL LIGHT WITHIN REACH. WILL CONTINUE TO MONITOR
--- NOTE | 2020-11-29 11:17 | NUR ---
Pt resting in bed and reports 8/10 pain. Pt states pain is due to pressure from ascites. Offered therapeutic listening and answered questions. Pt reports wanting paracentesis perfomed soon. Pt expresses appreciation and reports no other concerns at this time. Dr Casiano in to examine Pt. Spoke with Dr Casiano after his examination. Dr Casiano will order paracentesis and discussed code status and POLST with Pt. Pt's wishes are DNR. POLST completed with Pt and Dr Casiano signs POLST. Will obtain copies of POLST for Pt's EMR and will provide copy to [facility] Administrator Farzana. Palliative Care will remain available.
--- NOTE | 2020-11-29 17:18 | NUR ---
Admit 11/28/20 discharge 11/29/2020 home with , Appt scheduled for december 04 9:[address] Sanchez to discuss out patient Haydee. Discussed home health, does not think he needs, has a walker at home, helps him with care needs. Wants to continue palliatvie chemo at this time.
[2020-11-29] MEDS ORDERED: TUMS500 MG PO (18:07)
[2020-11-29] MEDS ORDERED: MELATONIN5 M1 PO (18:08)
[2020-11-29] MEDS ORDERED: ROXICODONE5 MG PO (18:10)
--- NOTE | 2020-11-29 18:38 | NUR ---
DISCHARGE PT DC HOME. TAKEN OFF THE FLOOR VIA WHEELCHAIR BY RENDERER. WAITING DOWNSTAIRS AT EXIT TO PICK HIM UP. DC THE IV BEFORE THE PATIENT LEFT THE FLOOR. PT THANKED EVERYONE FOR THE CARE HE HAD. REVIEWED DC PACKET WITH PATIENT. HE DID NOT HAVE ANY QUESTIONS. DURING SHIFT PT WAS PLESANT AND ACCEPTING OF CARE. ABLE TO MAKE NEEDS KNOWN. PT HAD A PARACENTESIS BEFORE BEING DISCHARGE.
== END 2020-11-29 18:38 | disposition home or self-care (01) ==
LOC: ER 01:00 → MEDS 01:01
PROVIDERS: Emergency Medicine; Family Medicine; ADMIT Family Medicine
DX: C34.12 Malignant neoplasm of upper lobe, left bronchus or lung (principal); J91.0 Malignant pleural effusion; C78.6 Secondary malignant neoplasm of retroperitoneum and peritoneum; C79.51 Secondary malignant neoplasm of bone; D63.8 Anemia in other chronic diseases classified elsewhere; E11.36 Type 2 diabetes mellitus with diabetic cataract; M19.90 Unspecified osteoarthritis, unspecified site; H40.9 Unspecified glaucoma; H26.9 Unspecified cataract; Z87.442 Personal history of urinary calculi; Z79.4 Long term (current) use of insulin; Z87.891 Personal history of nicotine dependence
CPT/HCPCS: 0241U; 32555; 49083; 71045; 80053; 82947; 83690; 85025; 96374; 96375; 96376; 99285-25; A9270; A9270-GY; G0378; J1100; J1815; J1940; J2405; J3010

== ENCOUNTER → 2021-01-01 | Outpatient (CLI) | payer MEDICARE ==
[~2021-01-01] MED LIST changes: +COMBIGAN 0.2%-0.5 ML; +DEXA4 PO; +DICLOFENAC SOD100 GM TOP; +DICY20 PO; +FOLI1 PO; +MELATONIN5 M1 PO; +Norco 5-325 Ta1 EACH PO; +ONDA4 PO; +ROXICODONE5 MG PO; +TUMS500 MG PO; +Zofran4 MG PO
== END ==
LOC: LAB 12:27 → LAB SHORT 12:27
DX: D48.5 Neoplasm of uncertain behavior of skin (principal)
CPT/HCPCS: 88305

== ENCOUNTER 2021-01-29 16:47 | Emergency (ER) | payer MEDICARE ==
[~2021-01-29] VITALS: Ht 170.2 cm; Wt 69.8 kg
[~2021-01-29 16:47] MED LIST changes: -COMBIGAN 0.2%-0.5 ML; -DICY20 PO; -Norco 5-325 Ta1 EACH PO; -Zofran4 MG PO
[2021-01-29 17:15] LABS: Source, Urine Voided
[2021-01-29 17:20] LABS: BASOPHILS ABSOLUTE AUTO 0.01 K/mm3 (0.00-0.23); BASOPHILS PERCENT AUTO 0 % (0-2); EOSINOPHILS PERCENT AUTO 0 % (0-6); Hematocrit 31.3 % (37.0-53.0); Hemoglobin 10.5 g/dL (13.5-17.5); IMMATURE GRAN ABSOLUTE AUTO 0.19 K/mm3 (0.00-0.10); IMMATURE GRAN PERCENT AUTO 1 % (0-1); LYMPHOCYTES ABSOLUTE AUTO 0.51 K/mm3 (0.84-5.20); LYMPHOCYTES PERCENT AUTO 3 % (21-46); MONOCYTES PERCENT AUTO 1 % (4-13); Mean Corpuscular HGB 31.8 pg (26.0-34.0); Mean Corpuscular HGB Conc 33.5 g/dL (31.5-36.5); Mean Corpuscular Volume 95 fL (80-100); Mean Platelet Volume 9.8 fL (9.1-12.4); NEUTROPHILS ABSOLUTE AUTO 15.26 K/mm3 (1.96-9.15); NEUTROPHILS PERCENT AUTO 94 % (41-73); Platelet Count 148 K/mm3 (150-400); RDW Coefficient Variation 19.5 % (11.7-14.2); RDW Standard Deviation 66.4 fL (35.1-46.3); White Blood Cell Count 16.17 K/mm3 (4.00-11.30)
[2021-01-29 17:25] LABS: Appearance, Urine Clear (Clear); Bilirubin, Urine Neg (Neg); Blood, Urine Neg (Neg); Color, Urine Yellow (P-Yellow); Glucose Qualitative, Urine 4+ (Neg); Ketones, Urine Neg (Neg); Leukocyte Esterase, Urine Neg (Neg); Nitrite, Urine Neg (Neg); Protein, Urine Neg (Neg); Specific Gravity, Urine 1.005 (1.003-1.022); Urobilinogen, Urine NORM (Normal)
[2021-01-29 19:21] LABS: Alanine Aminotransfer (ALT/SGP 34 U/L (12-78); Albumin, Blood 3.2 g/dL (3.4-5.0); Albumin/Globulin Ratio 0.9 (0.8-1.8); Alk Phos 117 U/L (50-136); Anion Gap 6 mmol/L (6-16); Aspartate Aminotrans (AST/SGOT 21 U/L (12-37); Bilirubin, Total 0.2 mg/dL (0.1-1.0); Blood Urea Nitrogen 20 mg/dL (8-24); Bun/Creatinine Ratio 30.3 (12.0-20.0); CO2, Blood 26 mmol/L (21-32); Calcium, Blood 9.1 mg/dL (8.5-10.1); Chloride, Blood 107 mmol/L (98-108); Creatinine, Blood 0.66 mg/dL (0.60-1.20); Globulin, Blood 3.4 g/dL (2.2-4.0); Glomerular Filtration Rate >60 (60-); Glucose, Blood 289 mg/dL (70-99); Potassium, Blood 4.1 mmol/L (3.5-5.5); Sodium, Blood 139 mmol/L (136-145); Total Protein, Blood 6.6 g/dL (6.4-8.2)
[2021-02-01] MEDS ORDERED: COMBIGAN 0.2%-0.5 ML (21:38)
[2021-02-13] MEDS ORDERED: COMBIGAN 0.2%-0.5 ML (13:02)
== END 2021-01-29 20:05 | disposition home or self-care (01) ==
LOC: ER 16:47
PROVIDERS: Emergency Medicine
DX: R53.1 Weakness (principal); C34.90 Malignant neoplasm of unspecified part of unspecified bronchus or lung; C79.9 Secondary malignant neoplasm of unspecified site; E11.9 Type 2 diabetes mellitus without complications; Z87.891 Personal history of nicotine dependence; Z79.899 Other long term (current) drug therapy; Z88.8 Allergy status to other drugs, medicaments and biological substances
CPT/HCPCS: 36415; 70450; 71045; 80053; 81003; 83735; 85025; 93005; 93010; 99285-25

== ENCOUNTER → 2021-02-10 | Outpatient (CLI) | payer MEDICARE ==
[~2021-02-10] MED LIST changes: +COMBIGAN 0.2%-0.5 ML; +DICY20 PO; +Norco 5-325 Ta1 EACH PO; +Zofran4 MG PO
[2021-02-11 14:07] LABS: Stool Occult Bld Immuno 1 Negative (NEGATIVE)
== END | disposition home or self-care (01) ==
LOC: LAB SHORT 08:30 → LAB 08:30
PROVIDERS: Internal Medicine Gastroenterology
DX: Z12.11 Encounter for screening for malignant neoplasm of colon (principal)
CPT/HCPCS: 82274

== ENCOUNTER 2021-02-15 06:57 | Day surgery (SDC) | payer MEDICARE ==
[~2021-02-15] VITALS: Ht 170.2 cm; Wt 73.0 kg
[~2021-02-15 06:57] MED LIST changes: -DICY20 PO; -Norco 5-325 Ta1 EACH PO; -Zofran4 MG PO
--- NOTE | 2021-02-15 07:50 | NUR ---
Ambulatory in Day Surgery Patient confirms NPO status and agrees with scheduled surgery. History, Chart, Medications and Allergies reviewed before start of procedure. Lungs clear T/O to Auscultation. Patient reports completing Chlorhexadine shower X2 prior to admission to hospital. Patient States Post-Procedure ride home has been arranged. CHEM BG 127.
--- NOTE | 2021-02-15 11:50 | NUR ---
Discharge instructions reviewed with patient. Patient verbalizes understanding. Copy given to patient to take home. Dressing to procedure site clean, dry, intact with no visible drainage, swelling, erythema or bruising noted.
--- NOTE | 2021-02-15 12:17 | NUR ---
Discharged via wheelchair to private car for ride home. Discharge instructions reviewed with pt's . verbalizes understanding.
== END 2021-02-15 12:10 | disposition home or self-care (01) ==
LOC: ORSCMMR 06:57 → ORD 08:30 → ORSCMMR 08:30
PROVIDERS: Surgery
PROC: 0JH60WZ Insertion of Totally Implantable Vascular Access Device into Chest Subcutaneous Tissue and Fascia, Open Approach (ICD-10-PCS; principal; 2021-02-15 08:30)
DX: C34.12 Malignant neoplasm of upper lobe, left bronchus or lung (principal); E11.9 Type 2 diabetes mellitus without complications; Z79.899 Other long term (current) drug therapy; Z87.891 Personal history of nicotine dependence
CPT/HCPCS: 77001; 82947; C1788; J0690; J1642; J2250; J2704; J3010; J7120

== ENCOUNTER 2021-02-26 14:39 | Emergency (ER) | payer MEDICARE ==
[~2021-02-26] VITALS: Ht 170.2 cm; Wt 71.2 kg
[2021-02-26 15:02] LABS: Source, Urine Clean Catch
[2021-02-26 15:04] LABS: Bilirubin, Urine Neg (Neg); Blood, Urine Neg (Neg); Glucose Qualitative, Urine Neg (Neg); Ketones, Urine Neg (Neg); Leukocyte Esterase, Urine Neg (Neg); Nitrite, Urine Neg (Neg); Protein, Urine Neg (Neg); Urobilinogen, Urine NORM (Normal)
[2021-02-26 15:05] LABS: BASOPHILS ABSOLUTE AUTO 0.05 K/mm3 (0.00-0.23); BASOPHILS PERCENT AUTO 1 % (0-2); EOSINOPHILS ABSOLUTE AUTO 0.09 K/mm3 (0.00-0.68); EOSINOPHILS PERCENT AUTO 2 % (0-6); Hematocrit 31.1 % (37.0-53.0); Hemoglobin 10.4 g/dL (13.5-17.5); IMMATURE GRAN ABSOLUTE AUTO 0.02 K/mm3 (0.00-0.10); IMMATURE GRAN PERCENT AUTO 0 % (0-1); LYMPHOCYTES ABSOLUTE AUTO 0.75 K/mm3 (0.84-5.20); LYMPHOCYTES PERCENT AUTO 15 % (21-46); MONOCYTES ABSOLUTE AUTO 0.97 K/mm3 (0.16-1.47); MONOCYTES PERCENT AUTO 19 % (4-13); Mean Corpuscular HGB Conc 33.4 g/dL (31.5-36.5); Mean Corpuscular Volume 99 fL (80-100); Mean Platelet Volume 9.7 fL (9.1-12.4); NEUTROPHILS ABSOLUTE AUTO 3.22 K/mm3 (1.96-9.15); NEUTROPHILS PERCENT AUTO 63 % (41-73); Platelet Count 138 K/mm3 (150-400); RDW Coefficient Variation 17.3 % (11.7-14.2); RDW Standard Deviation 63.1 fL (35.1-46.3); Red Blood Cell Count 3.15 M/mm3 (4.30-5.90)
[2021-02-26 15:18] LABS: Appearance, Urine Clear (Clear); Color, Urine Yellow (P-Yellow)
[2021-02-26 15:27] LABS: Alanine Aminotransfer (ALT/SGP 31 U/L (12-78); Albumin, Blood 3.1 g/dL (3.4-5.0); Alk Phos 100 U/L (50-136); Anion Gap 4 mmol/L (6-16); Aspartate Aminotrans (AST/SGOT 28 U/L (12-37); Bilirubin, Total 0.4 mg/dL (0.1-1.0); Blood Urea Nitrogen 16 mg/dL (8-24); Bun/Creatinine Ratio 20.8 (12.0-20.0); CO2, Blood 31 mmol/L (21-32); Calcium, Blood 8.8 mg/dL (8.5-10.1); Chloride, Blood 108 mmol/L (98-108); Creatinine, Blood 0.77 mg/dL (0.60-1.20); Globulin, Blood 3.1 g/dL (2.2-4.0); Glomerular Filtration Rate >60 (60-); Glucose, Blood 116 mg/dL (70-99); Potassium, Blood 3.7 mmol/L (3.5-5.5); Sodium, Blood 143 mmol/L (136-145); Total Protein, Blood 6.2 g/dL (6.4-8.2)
[2021-02-26] MEDS ORDERED: Norco 5-325 Ta1 EACH PO (16:58)
[2021-02-26] MEDS ORDERED: DICY20 PO (16:58)
[2021-02-26] MEDS ORDERED: Zofran4 MG PO (16:58)
== END 2021-02-26 17:34 | disposition home or self-care (01) ==
LOC: ER 14:39
PROVIDERS: Physician Assistant
DX: R10.9 Unspecified abdominal pain (principal); R11.0 Nausea; E11.39 Type 2 diabetes mellitus with other diabetic ophthalmic complication; H42 Glaucoma in diseases classified elsewhere; Z88.8 Allergy status to other drugs, medicaments and biological substances; Z79.899 Other long term (current) drug therapy; Z87.442 Personal history of urinary calculi; Z87.891 Personal history of nicotine dependence
CPT/HCPCS: 74177; 80053; 81003; 83690; 85025; 96374-59; 96375; 96376; 99285-25; A9270; J1170; J2405; Q9967

== ENCOUNTER 2021-05-10 19:38 | Emergency (ER) | payer MEDICARE ==
[~2021-05-10] VITALS: Ht 170.2 cm; Wt 77.1 kg
[~2021-05-10 19:38] MED LIST changes: +DICY20 PO; +Norco 5-325 Ta1 EACH PO; +Zofran4 MG PO
[2021-05-10 20:19] LABS: BASOPHILS ABSOLUTE AUTO 0.01 K/mm3 (0.00-0.23); BASOPHILS PERCENT AUTO 0 % (0-2); Hematocrit 34.4 % (37.0-53.0); Hemoglobin 11.9 g/dL (13.5-17.5); LYMPHOCYTES ABSOLUTE AUTO 0.45 K/mm3 (0.84-5.20); LYMPHOCYTES PERCENT AUTO 3 % (21-46); MONOCYTES ABSOLUTE AUTO 0.95 K/mm3 (0.16-1.47); MONOCYTES PERCENT AUTO 6 % (4-13); Mean Corpuscular HGB 30.9 pg (26.0-34.0); Mean Corpuscular HGB Conc 34.6 g/dL (31.5-36.5); Mean Corpuscular Volume 89 fL (80-100); Mean Platelet Volume 10.4 fL (9.1-12.4); Platelet Count 121 K/mm3 (150-400); RDW Standard Deviation 39.1 fL (35.1-46.3); Red Blood Cell Count 3.85 M/mm3 (4.30-5.90); White Blood Cell Count 15.94 K/mm3 (4.00-11.30)
[2021-05-10 20:22] LABS: EOSINOPHILS PERCENT AUTO 0 % (0-6); IMMATURE GRAN PERCENT AUTO 9 % (0-1); NEUTROPHILS ABSOLUTE AUTO 13.03 K/mm3 (1.96-9.15); NEUTROPHILS PERCENT AUTO 82 % (41-73)
[2021-05-10 20:31] LABS: Alanine Aminotransfer (ALT/SGP 33 U/L (12-78); Albumin, Blood 2.8 g/dL (3.4-5.0); Albumin/Globulin Ratio 0.8 (0.8-1.8); Alk Phos 134 U/L (50-136); Anion Gap 4 mmol/L (6-16); Aspartate Aminotrans (AST/SGOT 25 U/L (12-37); Bilirubin, Total 0.4 mg/dL (0.1-1.0); Blood Urea Nitrogen 20 mg/dL (8-24); Bun/Creatinine Ratio 26.3 (12.0-20.0); CO2, Blood 30 mmol/L (21-32); Chloride, Blood 103 mmol/L (98-108); Creatinine, Blood 0.76 mg/dL (0.60-1.20); Globulin, Blood 3.4 g/dL (2.2-4.0); Glomerular Filtration Rate >60 (60-); Glucose, Blood 429 mg/dL (70-99); Potassium, Blood 4.2 mmol/L (3.5-5.5); Sodium, Blood 137 mmol/L (136-145); Total Protein, Blood 6.2 g/dL (6.4-8.2)
[2021-05-10 20:43] LABS: BAND PERCENT MAN 4 % (0-8); BASOPHILS PERCENT MAN 0 % (0-2); EOSINOPHILS PERCENT MAN 0 % (0-6); LYMPHOCYTES ABSOLUTE MAN 0.31 K/mm3 (0.84-5.20); LYMPHOCYTES PERCENT MAN 2 % (21-46); METAMYELOCYTE ABSOLUTE MAN 0.15 K/mm3 (0.00-0.00); METAMYELOCYTE PERCENT MAN 1 % (0-0); MONOCYTES ABSOLUTE MAN 0.63 K/mm3 (0.16-1.47); MONOCYTES PERCENT MAN 4 % (4-13); NEUTROPHILS ABSOLUTE MAN 14.82 K/mm3 (1.96-9.15); SEG NEUTROPHILS PERCENT MAN 89 % (41-73); TOTAL CELLS COUNTED 100
[2021-05-10 22:28] LABS: Source, Urine Voided
[2021-05-10 22:30] LABS: Bilirubin, Urine Neg (Neg); Blood, Urine Neg (Neg); Glucose Qualitative, Urine 4+ (Neg); Ketones, Urine Neg (Neg); Leukocyte Esterase, Urine Neg (Neg); Nitrite, Urine Neg (Neg); Protein, Urine Neg (Neg); Urobilinogen, Urine NORM (Normal)
[2021-05-10 22:35] LABS: Appearance, Urine Clear (Clear); Color, Urine Yellow (P-Yellow)
== END 2021-05-10 23:11 | disposition home or self-care (01) ==
LOC: ER 19:38
PROVIDERS: Emergency Medicine
DX: C78.6 Secondary malignant neoplasm of retroperitoneum and peritoneum (principal); E11.65 Type 2 diabetes mellitus with hyperglycemia; K59.00 Constipation, unspecified; Z88.8 Allergy status to other drugs, medicaments and biological substances; Z79.899 Other long term (current) drug therapy; Z87.442 Personal history of urinary calculi
CPT/HCPCS: 74177; 80053; 81003; 82947; 83690; 85025; 93005; 93010; 96374-59; 96375; 99285-25; A9270; J1170; J1815; J2405; J7030; Q9967

== ENCOUNTER 2021-05-12 06:43 | Emergency (ER) | payer MEDICARE ==
[~2021-05-12] VITALS: Ht 172.7 cm; Wt 83.9 kg
[2021-05-12 07:04] LABS: Source, Urine Clean Catch
[2021-05-12 07:09] LABS: Appearance, Urine Clear (Clear); Bilirubin, Urine Neg (Neg); Blood, Urine Neg (Neg); Color, Urine Yellow (P-Yellow); Glucose Qualitative, Urine Neg (Neg); Hematocrit 37.7 % (37.0-53.0); Ketones, Urine Neg (Neg); Leukocyte Esterase, Urine Neg (Neg); Mean Corpuscular HGB 31.6 pg (26.0-34.0); Mean Corpuscular HGB Conc 34.5 g/dL (31.5-36.5); Mean Corpuscular Volume 92 fL (80-100); Mean Platelet Volume 10.1 fL (9.1-12.4); Nitrite, Urine Neg (Neg); Platelet Count 92 K/mm3 (150-400); Protein, Urine Neg (Neg); RDW Coefficient Variation 12.1 % (11.7-14.2); RDW Standard Deviation 40.8 fL (35.1-46.3); Red Blood Cell Count 4.12 M/mm3 (4.30-5.90); Specific Gravity, Urine 1.015 (1.003-1.022); Urobilinogen, Urine NORM (Normal); White Blood Cell Count 10.54 K/mm3 (4.00-11.30)
[2021-05-12 07:33] LABS: BAND PERCENT MAN 4 % (0-8); BASOPHILS PERCENT MAN 0 % (0-2); EOSINOPHILS PERCENT MAN 0 % (0-6); LYMPHOCYTES ABSOLUTE MAN 1.15 K/mm3 (0.84-5.20); LYMPHOCYTES PERCENT MAN 11 % (21-46); MONOCYTES PERCENT MAN 1 % (4-13); MYELOCYTE PERCENT MAN 1 % (0-0); NEUTROPHILS ABSOLUTE MAN 9.16 K/mm3 (1.96-9.15); SEG NEUTROPHILS PERCENT MAN 83 % (41-73); TOTAL CELLS COUNTED 100
[2021-05-12 07:35] LABS: Alanine Aminotransfer (ALT/SGP 61 U/L (12-78); Albumin, Blood 2.8 g/dL (3.4-5.0); Albumin/Globulin Ratio 0.9 (0.8-1.8); Alk Phos 150 U/L (50-136); Anion Gap 2 mmol/L (6-16); Aspartate Aminotrans (AST/SGOT 47 U/L (12-37); Bilirubin, Total 0.7 mg/dL (0.1-1.0); Blood Urea Nitrogen 20 mg/dL (8-24); Bun/Creatinine Ratio 26.1 (12.0-20.0); CO2, Blood 34 mmol/L (21-32); Calcium, Blood 9.2 mg/dL (8.5-10.1); Chloride, Blood 103 mmol/L (98-108); Creatinine, Blood 0.77 mg/dL (0.60-1.20); Globulin, Blood 3.2 g/dL (2.2-4.0); Glomerular Filtration Rate >60 (60-); Glucose, Blood 178 mg/dL (70-99); Potassium, Blood 3.7 mmol/L (3.5-5.5); Sodium, Blood 139 mmol/L (136-145)
--- NOTE | 2021-05-12 12:11 | NUR ---
Called to ER for a palliative care consult. Lucio is a 75 year old with metastatic lung cancer that was diagnosed in 2019. Dr. Connelly is his oncologist, Dr. Liang is his PCP. Lucio is lying on the stretcher in the ER. He reports that his pain is currently 0/10 at the time of the visit. He has received IV dilaudid earlier in the shift. He reports that he is currently undergoing chemotherapy under Dr. Connelly's direction. He is having difficulty speaking and finding words which he reports is new this past week. He reports this is his second time in the ER in the past couple days for pain management. Dr. Chandler states that pt's pain is most likely due to tumor burden. Lucio tells me that he is hoping that Dr. Connelly with chemotherapy will be able to get his cancer back down to a manageable level. He reports that he is frustrasted that his body isn't able to do the things he used to be able to do. He states that he is sometimes forgetful and requests that I speak with his , Maggie, for more information. Phone call to Maggie. She reports that Lucio had chemo on . He was evaluated in the ER on night and again today for hyperglycemia and abdominal pain. Maggie reports Lucio was doing well with his cancer treatments last spring when the treatment planned was changed. His health declined and Dr. Connelly is now trying a different treatment plan. Maggie states that Dr. Connelly told them "There is a lot of cancer in there. I'm hopeful that we can get it back under control." Maggie reports that at one point Lucio did have mets in his brain that was treated with radiation. The most recent head CT in January 2021 showed no evidence of mets at that time. The new speech issue started this past week. She reports Lucio is quite down and depressed lately. Broached the subject of advanced care planning and coming up with a short and middle or intermediate school principal plan for his cancer treatment with both Lucio and Maggie. Discussed options of continued treatment (managing symptoms of disease vs. side effects of treatment) vs. transitioning to hospice services when they feel the time is right for them. Encouraged them to talk to Lucio's oncologist as well as his PCP for information. Lucio has an appointment with Cheri Serrano NP at Dr. Jon's office on 05/16/21. Maggie will also plan to call Dr. Jon's office tomorrow with update on 2 ER visits over the weekend. Maggie's concern is for Lucio's comfort and for for the new speech difficulties in his having the past few days. Spoke with Dr. Chandler and relayed concerns. Short term plan will be for a head CT prior to discharge back home with Maggie. Dr. Chandler will write RX for small amount of pain medications until Lucio can connect with Dr. Connelly or Dr. Liang to discuss further pain managment. FDC plan will be determined after Marianne speak with Dr. Connelly and Dr. Liang. Lucio is already a DNR as documented in previous visits. Maggie and Lucio are in agreement with this plan. Nursing updated.
--- NOTE | 2021-05-13 14:36 | NUR ---
Faxed ER progress notes from 05/10/21 and 05/12/21 and PC notes from 05/12/[address] Jon's office.
--- NOTE | 2021-05-14 16:43 | NUR ---
Telephone follow up done after Pt's ER visit this weekend. Pt answered the phone but appears to have no memory of ER visit, conversations, medications he is taking. He tells me his pain is no better at this time and rates it a 7/10. He is dyspnic with conversation on the phone and sounds anxious. He tells me his would be more likely to be able to answer any questions but she is out and he's unsure for how long. I ask about his cat, Abbi and he says she is near him and is his guardian geni. I have met Mr [place] in the hospital during acute care stays and he is very attached to his cat. While we are talking his returns home. She states she has not filled the prescription for dilauded because the SUPERVIS[employer] at oncologist has not returned call to say it was ok. Pt reported good relief of pain with dilauded in the hospital. With Maggie's permission, I called [facility] oncology and spoke to staff, who had [employer] Cheri next to her. They state MA did return call to the home and I am guessing they spoke with Lucio, who appears to have very little short term memory available to him. I gave update on two ER visits in past 5 days, cont severe pain, medications ordered in ER and requested directions for . [employer] states pt can take dilauded if it is effective but to d/c prev pain med ordered. Pt has an geovanna with LORENZO Alonzo at oncologist's office this week on . I called Maggie to relay "ok to fill and for pt to take dilauded but to discontinue hydrocodone while taking dilauded". verbalizes understanding. She was told that Dr Connelly has info from ER visits and update from me today. Informed Maggie that records at 's office note that her call was returned. Maggie was unaware of this. Discussed that Luico's memory is failing due to ongoing severe chronic illness, progression of cancer and also medications impairing memory and brain function likely.
== END 2021-05-12 12:43 | disposition home or self-care (01) ==
LOC: ER 06:43
PROVIDERS: Emergency Medicine
DX: R10.9 Unspecified abdominal pain (principal); E11.9 Type 2 diabetes mellitus without complications; M19.90 Unspecified osteoarthritis, unspecified site; Z88.8 Allergy status to other drugs, medicaments and biological substances; Z79.899 Other long term (current) drug therapy; Z87.891 Personal history of nicotine dependence
CPT/HCPCS: 36415; 70450; 71045; 74176; 80053; 81003; 85025; 96374; 96375; 96376; 99284-25; J1170; J2405

== ENCOUNTER 2021-05-22 12:53 | Emergency (ER) | payer MEDICARE ==
[~2021-05-22] VITALS: Ht 170.2 cm; Wt 74.8 kg
[2021-05-22] MEDS ORDERED: Hair, Skin & N1 EACH (13:10)
[2021-05-22] MEDS ORDERED: XYZAL5 MG PO (13:14)
[2021-05-22] MEDS ORDERED: PYRI100 (13:17)
[2021-05-22] MEDS ORDERED: OMEGA MONOPURE (13:17)
[2021-05-22] MEDS ORDERED: OMEGA-3 FISH O1 EAC4 (13:17)
[2021-05-22] MEDS ORDERED: GLUC500 (13:18)
[2021-05-22 14:21] LABS: Hematocrit 33.3 % (37.0-53.0); Hemoglobin 11.6 g/dL (13.5-17.5); Mean Corpuscular HGB 31.4 pg (26.0-34.0); Mean Corpuscular HGB Conc 34.8 g/dL (31.5-36.5); Mean Corpuscular Volume 90 fL (80-100); Platelet Count 96 K/mm3 (150-400); RDW Coefficient Variation 12.4 % (11.7-14.2); RDW Standard Deviation 39.8 fL (35.1-46.3); Red Blood Cell Count 3.69 M/mm3 (4.30-5.90); White Blood Cell Count 9.31 K/mm3 (4.00-11.30)
[2021-05-22 14:42] LABS: Alanine Aminotransfer (ALT/SGP 35 U/L (12-78); Albumin/Globulin Ratio 0.9 (0.8-1.8); Alk Phos 189 U/L (50-136); Anion Gap 3 mmol/L (6-16); Aspartate Aminotrans (AST/SGOT 28 U/L (12-37); Bilirubin, Total 0.5 mg/dL (0.1-1.0); Blood Urea Nitrogen 13 mg/dL (8-24); CO2, Blood 34 mmol/L (21-32); Chloride, Blood 101 mmol/L (98-108); Creatinine, Blood 1.08 mg/dL (0.60-1.20); Globulin, Blood 3.3 g/dL (2.2-4.0); Glomerular Filtration Rate >60 (60-); Glucose, Blood 142 mg/dL (70-99); Potassium, Blood 3.7 mmol/L (3.5-5.5); Sodium, Blood 138 mmol/L (136-145); Total Protein, Blood 6.3 g/dL (6.4-8.2)
[2021-05-22 14:43] LABS: BAND PERCENT MAN 5 % (0-8); BASOPHILS PERCENT MAN 0 % (0-2); EOSINOPHILS PERCENT MAN 0 % (0-6); LYMPHOCYTES ABSOLUTE MAN 0.18 K/mm3 (0.84-5.20); LYMPHOCYTES PERCENT MAN 2 % (21-46); MONOCYTES ABSOLUTE MAN 0.46 K/mm3 (0.16-1.47); MONOCYTES PERCENT MAN 5 % (4-13); MYELOCYTE ABSOLUTE MAN 0.27 K/mm3 (0.00-0.00); MYELOCYTE PERCENT MAN 3 % (0-0); NEUTROPHILS ABSOLUTE MAN 8.37 K/mm3 (1.96-9.15); SEG NEUTROPHILS PERCENT MAN 85 % (41-73); TOTAL CELLS COUNTED 100
== END 2021-05-22 16:31 | disposition home or self-care (01) ==
LOC: ER 12:53
PROVIDERS: Physician Assistant
DX: R10.9 Unspecified abdominal pain (principal); C34.90 Malignant neoplasm of unspecified part of unspecified bronchus or lung; E11.9 Type 2 diabetes mellitus without complications; Z88.8 Allergy status to other drugs, medicaments and biological substances; Z79.899 Other long term (current) drug therapy; Z87.891 Personal history of nicotine dependence
CPT/HCPCS: 80053; 85025; 96374; 96375; 96376; 99284-25; J1170; J2405

== ENCOUNTER 2021-07-23 14:45 | Emergency (ER) | payer MEDICARE ==
[~2021-07-23] VITALS: Ht 167.6 cm; Wt 68.0 kg
[2021-07-23 16:20] LABS: Source, Urine Clean Catch
[2021-07-23 16:23] LABS: Appearance, Urine Clear (Clear); Bilirubin, Urine Neg (Neg); Blood, Urine Neg (Neg); Color, Urine Yellow (P-Yellow); Glucose Qualitative, Urine 4+ (Neg); Ketones, Urine Neg (Neg); Leukocyte Esterase, Urine Neg (Neg); Nitrite, Urine Neg (Neg); Protein, Urine Neg (Neg); Specific Gravity, Urine 1.005 (1.003-1.022); Urobilinogen, Urine NORM (Normal)
[2021-07-23 16:26] LABS: Hematocrit 23.2 % (37.0-53.0); Hemoglobin 7.6 g/dL (13.5-17.5); Mean Corpuscular HGB 32.2 pg (26.0-34.0); Mean Corpuscular HGB Conc 32.8 g/dL (31.5-36.5); Mean Corpuscular Volume 98 fL (80-100); Mean Platelet Volume 11.2 fL (9.1-12.4); RDW Coefficient Variation 18.8 % (11.7-14.2); RDW Standard Deviation 66.1 fL (35.1-46.3); Red Blood Cell Count 2.36 M/mm3 (4.30-5.90); White Blood Cell Count 5.72 K/mm3 (4.00-11.30)
[2021-07-23 16:40] LABS: Platelet Count 44 K/mm3 (150-400)
[2021-07-23 16:44] LABS: Alanine Aminotransfer (ALT/SGP 83 U/L (12-78); Albumin, Blood 2.3 g/dL (3.4-5.0); Albumin/Globulin Ratio 0.9 (0.8-1.8); Alk Phos 286 U/L (50-136); Anion Gap 6 mmol/L (6-16); Aspartate Aminotrans (AST/SGOT 20 U/L (12-37); Beta-hydroxybutyrate 1.2 mg/dL (0.2-2.8); Bilirubin, Total 0.4 mg/dL (0.1-1.0); Blood Urea Nitrogen 30 mg/dL (8-24); Bun/Creatinine Ratio 46.9 (12.0-20.0); CO2, Blood 27 mmol/L (21-32); Calcium, Blood 8.1 mg/dL (8.5-10.1); Chloride, Blood 107 mmol/L (98-108); Creatinine, Blood 0.64 mg/dL (0.60-1.20); Globulin, Blood 2.5 g/dL (2.2-4.0); Glomerular Filtration Rate >60 (60-); Glucose, Blood 426 mg/dL (70-99); Potassium, Blood 4.5 mmol/L (3.5-5.5); Sodium, Blood 140 mmol/L (136-145); Total Protein, Blood 4.8 g/dL (6.4-8.2)
[2021-07-23 18:05] LABS: BAND PERCENT MAN 1 % (0-8); BASOPHILS PERCENT MAN 0 % (0-2); EOSINOPHILS PERCENT MAN 0 % (0-6); LYMPHOCYTES ABSOLUTE MAN 0.28 K/mm3 (0.84-5.20); LYMPHOCYTES PERCENT MAN 5 % (21-46); MONOCYTES ABSOLUTE MAN 0.11 K/mm3 (0.16-1.47); MONOCYTES PERCENT MAN 2 % (4-13); NEUTROPHILS ABSOLUTE MAN 5.31 K/mm3 (1.96-9.15); SEG NEUTROPHILS PERCENT MAN 92 % (41-73); TOTAL CELLS COUNTED 100
== END 2021-07-23 18:09 | disposition home or self-care (01) ==
LOC: ER 14:45
PROVIDERS: Physician Assistant
DX: E11.65 Type 2 diabetes mellitus with hyperglycemia (principal); D64.9 Anemia, unspecified; D69.6 Thrombocytopenia, unspecified; Z88.8 Allergy status to other drugs, medicaments and biological substances; Z79.899 Other long term (current) drug therapy; Z87.891 Personal history of nicotine dependence
CPT/HCPCS: 80053; 81003; 82010; 82947; 85025; 87086; 99285; J7030

== ENCOUNTER → 2021-07-23 | Outpatient (CLI) | payer MEDICARE ==
[~2021-07-23] MED LIST changes: +GLUC500; +Hair, Skin & N1 EACH; +OMEGA MONOPURE; +OMEGA-3 FISH O1 EAC4; +PYRI100
[2021-07-23 11:48] LABS: BASOPHILS ABSOLUTE AUTO 0.05 K/mm3 (0.00-0.23); BASOPHILS PERCENT AUTO 1 % (0-2); Hematocrit 28.3 % (37.0-53.0); Hemoglobin 9.7 g/dL (13.5-17.5); Mean Corpuscular HGB 32.7 pg (26.0-34.0); Mean Corpuscular HGB Conc 34.3 g/dL (31.5-36.5); Mean Corpuscular Volume 95 fL (80-100); Mean Platelet Volume 11.5 fL (9.1-12.4); Platelet Count 62 K/mm3 (150-400); RDW Coefficient Variation 18.8 % (11.7-14.2); RDW Standard Deviation 64.8 fL (35.1-46.3); Red Blood Cell Count 2.97 M/mm3 (4.30-5.90); White Blood Cell Count 6.98 K/mm3 (4.00-11.30)
[2021-07-23 11:52] LABS: Alanine Aminotransfer (ALT/SGP 122 U/L (12-78); Albumin, Blood 3.2 g/dL (3.4-5.0); Albumin/Globulin Ratio 1.1 (0.8-1.8); Alk Phos 409 U/L (40-126); Anion Gap 6 mmol/L (6-16); Aspartate Aminotrans (AST/SGOT 29 U/L (12-37); Bilirubin, Total 0.6 mg/dL (0.1-1.0); Blood Urea Nitrogen 34 mg/dL (8-24); Bun/Creatinine Ratio 31.8 (12.0-20.0); CO2, Blood 33 mmol/L (21-32); Calcium, Blood 9.1 mg/dL (8.5-10.1); Chloride, Blood 97 mmol/L (98-108); Creatinine, Blood 1.07 mg/dL (0.60-1.20); Glomerular Filtration Rate >60 (60-); Potassium, Blood 4.2 mmol/L (3.5-5.5); Sodium, Blood 136 mmol/L (136-145); Total Protein, Blood 6.2 g/dL (6.4-8.2)
[2021-07-23 11:55] LABS: Glucose, Blood 518 mg/dL (70-99)
[2021-07-23 12:00] LABS: EOSINOPHILS ABSOLUTE AUTO 0.02 K/mm3 (0.00-0.68); EOSINOPHILS PERCENT AUTO 0 % (0-6); IMMATURE GRAN ABSOLUTE AUTO 3.25 K/mm3 (0.00-0.10); IMMATURE GRAN PERCENT AUTO 47 % (0-1); LYMPHOCYTES ABSOLUTE AUTO 0.62 K/mm3 (0.84-5.20); LYMPHOCYTES PERCENT AUTO 9 % (21-46); MONOCYTES ABSOLUTE AUTO 0.03 K/mm3 (0.16-1.47); MONOCYTES PERCENT AUTO 0 % (4-13); NEUTROPHILS ABSOLUTE AUTO 3.01 K/mm3 (1.96-9.15); NEUTROPHILS PERCENT AUTO 43 % (41-73)
== END | disposition home or self-care (01) ==
LOC: LAB SHORT 11:36 → LAB 11:36
PROVIDERS: Family Medicine
DX: R73.9 Hyperglycemia, unspecified (principal)
CPT/HCPCS: 80053; 85025

== ENCOUNTER 2021-08-13 18:27 | Inpatient (IN) | payer MEDICARE ==
[~2021-08-13] VITALS: Ht 167.6 cm; Wt 69.0 kg
[2021-08-13 19:30] LABS: Alanine Aminotransfer (ALT/SGP 808 U/L (12-78); Albumin, Blood 2.7 g/dL (3.4-5.0); Albumin/Globulin Ratio 0.8 (0.8-1.8); Anion Gap 6 mmol/L (6-16); Aspartate Aminotrans (AST/SGOT 559 U/L (12-37); Bilirubin, Total 0.9 mg/dL (0.1-1.0); Blood Urea Nitrogen 24 mg/dL (8-24); Bun/Creatinine Ratio 29.2 (12.0-20.0); CO2, Blood 28 mmol/L (21-32); Calcium, Blood 8.8 mg/dL (8.5-10.1); Chloride, Blood 103 mmol/L (98-108); Creatinine, Blood 0.82 mg/dL (0.60-1.20); Globulin, Blood 3.3 g/dL (2.2-4.0); Glomerular Filtration Rate >60 (60-); Glucose, Blood 273 mg/dL (70-99); Potassium, Blood 3.8 mmol/L (3.5-5.5); Sodium, Blood 137 mmol/L (136-145)
[2021-08-13 19:34] LABS: BASOPHILS ABSOLUTE AUTO 0.06 K/mm3 (0.00-0.23); BASOPHILS PERCENT AUTO 1 % (0-2); EOSINOPHILS PERCENT AUTO 0 % (0-6); Hematocrit 27.8 % (37.0-53.0); Hemoglobin 9.2 g/dL (13.5-17.5); IMMATURE GRAN ABSOLUTE AUTO 0.32 K/mm3 (0.00-0.10); IMMATURE GRAN PERCENT AUTO 4 % (0-1); LYMPHOCYTES ABSOLUTE AUTO 0.66 K/mm3 (0.84-5.20); LYMPHOCYTES PERCENT AUTO 8 % (21-46); MONOCYTES ABSOLUTE AUTO 1.22 K/mm3 (0.16-1.47); MONOCYTES PERCENT AUTO 15 % (4-13); Mean Corpuscular HGB 33.5 pg (26.0-34.0); Mean Corpuscular HGB Conc 33.1 g/dL (31.5-36.5); Mean Corpuscular Volume 101 fL (80-100); Mean Platelet Volume 10.3 fL (9.1-12.4); NEUTROPHILS ABSOLUTE AUTO 6.09 K/mm3 (1.96-9.15); NEUTROPHILS PERCENT AUTO 73 % (41-73); Platelet Count 148 K/mm3 (150-400); RDW Coefficient Variation 19.9 % (11.7-14.2); RDW Standard Deviation 73.2 fL (35.1-46.3); Red Blood Cell Count 2.75 M/mm3 (4.30-5.90); White Blood Cell Count 8.35 K/mm3 (4.00-11.30)
[2021-08-13 19:40] LABS: Alk Phos 1168 U/L (50-136)
[2021-08-13] MEDS ORDERED: FENTANYL 25 MCG/HR (20:25)
[2021-08-13] MEDS ORDERED: DEXA4 (20:25)
[2021-08-13] MEDS ORDERED: METFORMIN HCL500 M2 PO (20:25)
[2021-08-13] MEDS ORDERED: TOUJEO SOL300 UNIT/2 (20:27)
[2021-08-13] MEDS ORDERED: CALCIUM 500 MG1 EAC2 PO (20:27)
[2021-08-13 21:47] LABS: Source, Urine Clean Catch
[2021-08-13 21:50] LABS: Bilirubin, Urine Neg (Neg); Blood, Urine 1+ (Neg); Glucose Qualitative, Urine 4+ (Neg); Ketones, Urine Neg (Neg); Leukocyte Esterase, Urine Neg (Neg); Nitrite, Urine Neg (Neg); Protein, Urine 2+ (Neg); Urobilinogen, Urine 2+ (Normal)
[2021-08-13 22:03] LABS: Color, Urine Yellow (P-Yellow)
[2021-08-13 22:04] LABS: Appearance, Urine Hazy (Clear)
[2021-08-13 22:05] LABS: Bacteria Rare /hpf; Squamous Epithelial Cells Rare /hpf (Few); White Blood Cells, Urine 0-2 /hpf (0-5)
[2021-08-13 22:06] LABS: Calcium Oxalate Crystals Rare /hpf
--- NOTE | 2021-08-14 05:36 | NUR ---
ALERT AND OREINTED X'S 4. HAS SOME DISCOMFORT TO ABDOMEN UPON PALPITATION, BOWEL SOUNDS PRESENT. RESPIRATIONS EVEN AND UNLABORED. CURRELT RESING PEACEFULLY IN BED. SAFETY MAINTAINED, CALL RODRIGUEZ IN REACH.
[2021-08-14 05:46] LABS: Alanine Aminotransfer (ALT/SGP 790 U/L (12-78); Albumin, Blood 2.4 g/dL (3.4-5.0); Albumin/Globulin Ratio 0.9 (0.8-1.8); Alk Phos 1093 U/L (50-136); Anion Gap 7 mmol/L (6-16); Aspartate Aminotrans (AST/SGOT 617 U/L (12-37); Bilirubin, Total 1.4 mg/dL (0.1-1.0); Blood Urea Nitrogen 22 mg/dL (8-24); Bun/Creatinine Ratio 26.7 (12.0-20.0); CO2, Blood 29 mmol/L (21-32); Calcium, Blood 8.6 mg/dL (8.5-10.1); Chloride, Blood 105 mmol/L (98-108); Creatinine, Blood 0.83 mg/dL (0.60-1.20); Globulin, Blood 2.8 g/dL (2.2-4.0); Glomerular Filtration Rate >60 (60-); Glucose, Blood 252 mg/dL (70-99); Potassium, Blood 3.6 mmol/L (3.5-5.5); Sodium, Blood 141 mmol/L (136-145); Total Protein, Blood 5.2 g/dL (6.4-8.2)
--- NOTE | 2021-08-14 12:25 | NUR ---
RECEIVED CALL BACK FROM DR. DELGADO RE: ORDER FOR GI CONSULT, DR. DELGADO SAID AFTER REVIEWING PT'S CHART " I DON'T DO THIS, PLEASE HAVE DR. CORBIN CALL ME". TRIED CALLING DR. CORBIN, MESSAGE LEFT THROUGH VOICEMAIL ABOUT WHAT DR. DELGADO SAID.
--- NOTE | 2021-08-14 12:27 | NUR ---
MESSAGE LEFT AT VOICEMEIL OF THE OFFICE OF DR. SERGEI COLLIER: ORDER FOR SURGERY CONSULT FOR THIS PT.
--- NOTE | 2021-08-14 12:37 | NUR ---
7317 TELEPHONE ORDER RECEIVED FROM DR. CORBIN TO CHANGE PT'S DIET TO FULL LIQUID DIET, TORB.
--- NOTE | 2021-08-14 13:07 | NUR ---
1305 SPOKE WITH MAYE AT SURGERY OFFICE, I ASKED FOR DR. BOYKIN FOR GI CONSULT PER ORDER FOR THIS PT. , DR. BOYKIN NOT AVAILABLE AT THIS TIME, DR. EATON IS IN THE OFFICE BUT NOT AVAILABLE AT THIS MOMENT, MESSAGE RELAYED TO LET DR. EATON KNOW ABOUT DR. CORBIN'S ORDER FOR SURGERY CONSULT, MAYE VERBALIZED UNDERSTANDING & WILL LET DR. EATON KNOW.
--- NOTE | 2021-08-14 13:11 | NUR ---
[address] OF DR. DELGADO'S RESPONSE TO CONSULT, DR. CORBIN SAID " THAT'S FINE".
--- NOTE | 2021-08-14 14:44 | NUR ---
PALLIATIVE CARE STAFF TALKING TO PT. & FAMILY MEMBER IN THE ROOM.
--- NOTE | 2021-08-14 16:26 | NUR ---
Spoke with Dr Olivera and discussed case. Pt has metastic cancer with oncologist reporting Pt has exhausted all treatment options. Pt and spouse may benefit from discussion regarding considering hospice. Pt resting in bed with spouse Maggie at bedside. Pt appears weak and frail. Offered therapeutic listening as Maggie reports speaking with Dr Jno's assistance Cheri SHANK INSPECTOR. She confirms no other treatment options. Offered emotional support as Pt is intermittently tearful. Discussed hospice as an option and educated on hospice philosophy. Answered questions and continued theapeutic listening. Discussed hospice agencies to choose from with Pt and spouse reporting [facility] as preference. Pt had [facility] in the past and reports having a good experience with agency. Discussed current code status with Pt and spouse reporting Pt is DNR. Discussed pain management options. Spouse reports Pt's has Fentanyl Patch 25mcg on. Pt and spouse also agreeable to trial Roxanol for pain. Pt and spouse express appreciation and reports no other concerns at this time. Reviewed Pt's POLST in his EMR and shows Pt is DNR. Called and spoke with Dr Olivera. Placed order for Roxanol 5-10mg SL Q 4 hours PRN, Fentanyl Patch 25mcg, and changed Pt's code status to DNR per V/O from Dr Olivera. Palliative Care will remain available for symptom management and supportive visits.
--- NOTE | 2021-08-14 16:28 | NUR ---
PT. SEEN BY DR. BOYKIN TODAY PER CONSULT ORDER OF , ALSO SEEN BY PALLIATIVE CARE, CODE STATUS CHANGED TO DNR.
--- NOTE | 2021-08-14 17:11 | NUR ---
Spiritual Care Visit with referral from Pallative Care. Pt. was awake in bed. Pt. had been recently notified that there was nothing further the doctors could do for him, and was still bearing the full weight of that diagnosis. Pts. distress was focused primarily on his concerns for his spouse. Listened empathetically as pt. gave a life review. Reinforced the end of life decisions he had made, acknowleging the difference between planning and executing those decisions. Mild catharsis was displayed through quiet acceptance of his condition. Pt. verbalized his trust in God's care for him and spouse. Parstoral prayer and scripture readings were shared. Pt. verbalized gratitude forthe care he has recieved from doctors and staff. I will monitor pt.
--- NOTE | 2021-08-14 17:45 | NUR ---
MESSAGE LEFT AT DR. CORBIN'S VOICEMAIL RE: PT'S 'S CALL THAT PT. IS GETTING FENTANYL PATCH 25 MCG X 72 HRS WHICH IS DUE TODAY.
--- NOTE | 2021-08-15 07:18 | NUR ---
ALERT X'S 4, CAN BE FORGETFUL. MEDICATED WITH MORPHINE PO AND FENTANYL IV FOR PAIN MANAGEMENT THROUGH [facility] DUE TO ABDOMINAL AND BACK PAIN, EFFECTIVE RELIEF. 1 ASSIST WITH WALKER FOR TRANSFERS. CURRRENTLY RESTING IN BED, NO COMPLAINTS, NO DISTRESS NOTED. SAFETY MAINTAINED, CALL RODRIGUEZ IN REACH.
--- NOTE | 2021-08-15 10:07 | NUR ---
DR CORBIN IN TO SEE PT. SPEAKING TO SPOUSE ON PHONE.
--- NOTE | 2021-08-15 11:21 | NUR ---
Initial Interview with [facility] Community Diet Attendant 1. Who did you speak with? Spoke with patient 2. What is the patient's prior level of functions? Independent lives with his spouse. assists with ADLs as needed. Patient has single story home. 3. What is the patient's current living situation? Patient lives independently with his spouse 4. Is the patient and/or family able to provide transportation to and from doctor's appointments and fiber picker prescriptions? Yes, provides transportation needs and friends help out as needed. 5. Does patient still drive? No 6. POA/PCP/NOK: NOK: Maggie/PCP Dr. Liang 7. Discharge goals: Home with Hospice on 08/20/21 -Home: Home with [facility] contacted; scheduled for intake on Thursday -DME: TBD -Medication Management: self-management/ assists -Preferred Pharmacy: [facility] -Housekeeping need: -Cooking: 8. List barriers to discharge: None known at this time 9. Discharge Plan: Plan is to discharge home with hospice 10. PCP Follow up appointment: Will be scheduled within seven calendar days of discharge 11. [place]: No
--- NOTE | 2021-08-15 15:53 | NUR ---
SPIRITUAL CARE IN TO SEE PT.
--- NOTE | 2021-08-15 16:02 | NUR ---
Spiritual Care Visit. Followed up with pt. after previous days visit. Pt. was in great discomfort. It was difficult for him to hold a conversation. Nursing staff was administering some pain relief. Pt. demonstrated distress over my presence, and I committed to make my visit brief. Provided anticiapatory guidance regarding a home hospice approval. Empathetically listened as he shared concerns for spouse. Offered emotional support and prayed with pt.
--- NOTE | 2021-08-15 18:15 | NUR ---
SUMMARY NO ACUTE CHANGES T/O SHIFT. PT ADVANCED TO [facility] DIET THIS SHIFT PER HIS REQUEST. MEDICATED TWICE DURING SHIFT FOR ABDOMINAL PAIN. SLIGHTLY UNSTEADY ON FEET. SITTING UP IN CHAIR AT THIS TIME. CALL LIGHT IN REACH.
--- NOTE | 2021-08-16 06:36 | NUR ---
SLEPT WELL THROUGH NIGHT. DENIED PAIN OR DISCOMFORT. NO ACUTE DISTRESS NOTED. SAFETY MAINTAINED, CALL RODRIGUEZ IN REACH. STATED HES HAPPY HES GOING HOME TODAY.
--- NOTE | 2021-08-16 11:17 | NUR ---
DISCHARGED TO HOSPICE DC'D IV, CATHETER INTACT. REVIEWED DC ORDERS, PT AND SPOUSE VERBALIZED UNDERSTANDING. PT LEFT UNIT IN WC W/POSSESSIONS AND DC PAPERWORK ACCOMPANIED BY SPOUSE.
--- NOTE | 2021-08-19 08:30 | NUR ---
Per Dr. Liang discharge appropriate on 08/16/21. Patient discharged to his residence with Hospice. Spoke with [facility] Delivery Lead on 08/15/21; hospice intake scheduled for 08/16/21 once patient is discharged. Coordinated transportation with patient's spouse; transportation provided by to residence. DME: [employer] will order equipment as needed. [facility] Transition of Care will contact patient to schedule hospital follow-up visit. No barriers to discharge.
== END 2021-08-16 10:32 | disposition hospice, home (50) | DRG 444 ==
LOC: ER 18:27 → SURS 18:28 → ER 23:46 → SURS 23:46
PROVIDERS: Physician Assistant; ADMIT Internal Medicine
DX: K83.09 Other cholangitis (principal); G93.41 Metabolic encephalopathy; C34.12 Malignant neoplasm of upper lobe, left bronchus or lung; C78.7 Secondary malignant neoplasm of liver and intrahepatic bile duct; C79.51 Secondary malignant neoplasm of bone; Z66 Do not resuscitate; C79.31 Secondary malignant neoplasm of brain; C78.6 Secondary malignant neoplasm of retroperitoneum and peritoneum; K80.11 Calculus of gallbladder with chronic cholecystitis with obstruction; M19.90 Unspecified osteoarthritis, unspecified site; D63.0 Anemia in neoplastic disease; E11.9 Type 2 diabetes mellitus without complications; F03.90 Unspecified dementia, unspecified severity, without behavioral disturbance, psychotic disturbance, mood disturbance, and anxiety; Z28.21 Immunization not carried out because of patient refusal; Z88.8 Allergy status to other drugs, medicaments and biological substances; Z79.899 Other long term (current) drug therapy; Z79.4 Long term (current) use of insulin; Z87.891 Personal history of nicotine dependence; Z98.890 Other specified postprocedural states; Z92.21 Personal history of antineoplastic chemotherapy
CPT/HCPCS: 36415; 74181; 76705; 80053; 81001; 82947; 83690; 85025; 93005; 93010; 96372; 96374; 96375; 96376; 99285-25; A9270; G0378; J0696; J1650; J2270; J3010